=== PATIENT | female | born 1965 | race Caucasian/White ===

== ENCOUNTER 2020-04-24 14:00 | Outpatient (RCR) | payer OTHER, SELFPAY ==
[2020-03-20 10:50] VITALS: BMI 37.4
[2020-03-20 10:51] VITALS: BMI 37.4
== END 2020-06-10 14:01 | disposition home or self-care (01) ==
LOC: ANHDMC 14:00
PROVIDERS: PCP Physician Assistant; Visit Provider Physician Assistant
DX: E11.65 Type 2 diabetes mellitus with hyperglycemia (principal); Z71.3 Dietary counseling and surveillance; Z71.89 Other specified counseling
CPT/HCPCS: 97802; G0108

== ENCOUNTER → 2020-06-27 10:24 | Outpatient (CLI) | payer OTHER, SELFPAY ==
--- NOTE | ~2020-06-27 | MMUS_ITS ---
EXAMINATION: MM diagnostic beni BI w traci, US breast RT limited HISTORY: Right palpable breast lump TECHNIQUE: Bilateral full field ML, MLO and CC and right spot MLO and CC 3-D tomosynthesis images wer e performed and synthetic 2-D images were generated. CAD analysis was submitted and interpreted. High resolution targeted right breast ultrasound was performed and at area of clinical complaint at 1:00 17 cm from nipple. COMPARISON: 06/01/2019, 12/09/2017, 10/08/2016 bilateral digital screening mammogram examinations FINDINGS: MAMMOGRAPHIC FINDINGS: There is a low density 9 mm asymmetric ill-defined opacity in the mid to upper right breast 6.4 cm de ep to the nipple on MLO view (MLO Tomosynthesis image /). Another low-density asymmetric ill-defined opacity of approximately 9 mm dimension is noted in the up per outer left breast (MLO Tomosynthesis image /). These 2 opacities are likely stable since 10/08/2016. Otherwise no suspicious mass, architectural distortion, malignant calcification, skin thickening or r etraction of either breast is evident. ULTRASOUND: Right breast 1:00 17 cm from nipple: Parallel circumscribed 4.5 x 8.3 mm hyperechoic lesion consisten t with probable small lipoma is noted at the area of clinical complaint. IMPRESSION: 1. No mammographic evidence of malignancy 2. Routine mammographic screening is recommended. BI-RADS Category 2: Benign finding(s). Reviewed, dictated and finalized at location B. CLEANER IMPRESSION: 1. No mammographic evidence of malignancy 2. Routine mammographic screening is recommended. BI-RADS Category 2: Benign finding(s).
== END ==
PROVIDERS: PCP Physician Assistant; Visit Provider Nurse Practitioner
DX: N63.10 Unspecified lump in the right breast, unspecified quadrant (principal)
CPT/HCPCS: 76642; 77062; 77066; G0279

== ENCOUNTER 2020-07-08 14:57 | Outpatient (RCR) | payer OTHER, SELFPAY ==
[2020-07-08 15:19] VITALS: BMI 36.8
== END 2020-09-22 09:54 | disposition home or self-care (01) ==
LOC: ANHDMC 14:57
PROVIDERS: PCP Physician Assistant; Visit Provider Physician Assistant
DX: E11.65 Type 2 diabetes mellitus with hyperglycemia (principal); Z71.3 Dietary counseling and surveillance
CPT/HCPCS: 97803

== ENCOUNTER 2020-12-19 01:18 | Day surgery (SDC) | payer OTHER, SELFPAY ==
[2020-12-04 11:27] VITALS: BMI 38.6
[2020-12-19 06:24] VITALS: BP 125/80; PULSE 87; RESP 16; TEMP 35.9; O2SAT 100
[2020-12-19] MEDS: LACTATED RINGERS 1,000 ML 150 ML IV CONT (06:37)
[2020-12-19 06:40] LABS: Glucose Point of Care 135 mg/dl (65-105)
--- NOTE | 2020-12-19 07:03 | PM.HPGS ---
History of Present Illness History of Present Illness Consent: Risks, benefits, and alternatives have been discussed and questions answered. Patient agrees to proceed with procedure. Chief complaint: GERD Narrative: Maria Fernanda Ramires is a 55 year old female Persistent chest pain, burning, unresponsive to PPIs. She also had a great deal of nausea vomiting in the past year, particularly when she was started on Trulicity for diabetes. She has lost a net 30 lb Review of Systems Review of Systems: All systems reviewed & are unremarkable except as noted in HPI and below PMFSH Past Medical History Medical History Diabetes Hypertension IBS (irritable bowel syndrome) Surgical History Surgical History History of cholecystectomy Family History Family History Father Diabetes mellitus Hypertension Heart disease Liver cancer Mother Depression Sibling Multiple myeloma Social History Social History Smoking status: Never smoker Alcohol intake: never Substance use: never Substance use type: does not use Living arrangements: with family Spiritual care concerns: No Meds Home Medications and Allergies Home Medications Medication Instructions Recorded Confirmed Type duloxetine 60 mg capsule,delayed 60 mg PO DAILY 11/18/20 12/19/20 History release linaclotide 72 mcg capsule 72 mcg PO DAILY PRN 11/18/20 12/19/20 History lisinopril 2.5 mg tablet 2.5 mg PO DAILY 11/18/20 12/19/20 History progesterone micronized 200 mg 200 mg PO QHS 11/18/20 12/19/20 History capsule rosuvastatin 10 mg tablet 10 mg PO DAILY 11/18/20 12/19/20 History triamterene 50 mg capsule 50 mg PO DAILY 11/18/20 12/19/20 History dulaglutide [Trulicity] 0.75 mg SUBCUT WEEKLY 12/04/20 12/19/20 History Allergies Allergy/AdvReac Type Severity Reaction Status Date / Time No Known Allergies Allergy Unverified 12/19/20 06:23 Vital Signs Vital Signs - 24 hr 12/19/20 06:24 Temperature 35.9 C L Pulse Rate 87 Respiratory Rate 16 Blood Pressure 125/80 Pulse Oximetry 100 Exam Const: General: alert Orientation/consciousness: patient oriented x3 Resp: Auscultation: clear to auscultation bilaterally Cardio: Rhythm: regular rhythm GI: GI Palp: Yes Soft to palpation and No Tenderness to palpation present (GI) Neuro: General: patient oriented x3 Assessment and Plan Assessment and plan (1) GERD (gastroesophageal reflux disease): Code(s): K21.9 - Gastro-esophageal reflux disease without esophagitis Status: Acute
--- NOTE | 2020-12-19 07:08 | WPDANESEPPF ---
Anes - Initial Pre Proc Eval Procedure: Operation Date: 12/19/20 07:30 Proposed Procedures p Esophagogastroduodenoscopy - Toño Shirley MD Date/Time: 12/19/20 07:08 Surgeon: Toño Shirley MD Pre Op Diagnosis: GERD Patient Data Age: 55 Gender: F Height: 1.6 m Weight: 100.3 kg Last Vital Signs Temp 96.7 F L 12/19/20 06:24 Pulse 87 12/19/20 06:24 Resp 16 12/19/20 06:24 BP 125/80 12/19/20 06:24 Pulse Ox 100 12/19/20 06:24 Allergies Allergy/AdvReac Type Severity Reaction Status Date / Time No Known Allergies Allergy Unverified 12/19/20 06:23 Home Medications Medication Instructions Recorded Confirmed Type duloxetine 60 mg capsule,delayed 60 mg PO DAILY 11/18/20 12/19/20 History release linaclotide 72 mcg capsule 72 mcg PO DAILY PRN 11/18/20 12/19/20 History lisinopril 2.5 mg tablet 2.5 mg PO DAILY 11/18/20 12/19/20 History progesterone micronized 200 mg 200 mg PO QHS 11/18/20 12/19/20 History capsule rosuvastatin 10 mg tablet 10 mg PO DAILY 11/18/20 12/19/20 History triamterene 50 mg capsule 50 mg PO DAILY 11/18/20 12/19/20 History dulaglutide [Trulicity] 0.75 mg SUBCUT WEEKLY 12/04/20 12/19/20 History Laboratory Tests 12/19/20 06:36 POC Capillary Glucose 135 mg/dl H mg/dl (65-105) Patient hx anesthesia problems: none Family hx anesthesia problems: none PMFSH Past Medical History Medical History Diabetes Hypertension IBS (irritable bowel syndrome) Surgical History Surgical History History of cholecystectomy Family History Family History Father Diabetes mellitus Hypertension Heart disease Liver cancer Mother Depression Sibling Multiple myeloma Social History Social History Smoking status: Never smoker Alcohol intake: never Substance use: never Substance use type: does not use Living arrangements: with family Spiritual care concerns: No Anes - Eval Final PreProcedure Day of Procedure 12/19/20 07:08 Patient weight: morbidly obese Heart: regular rate and rhythm Lungs: clear to auscultation Airway: Mallampati scale class II Neurological: alert and oriented Last oral intake: >/= 8 hours ASA classification: III Emergent: no Anesthetic plan: proceed Anesthesia type and monitoring: general GIVS and standard monitoring Informed Consent: The patient's anesthetic plan and its attendant risks and benefits were discussed with the patient/family/POA. Questions were solicited and answers provided to the satisfaction of the patient/family/POA.
[2020-12-19 07:37] VITALS: BP 100/67; PULSE 82; RESP 22; O2SAT 100
[2020-12-19 07:47] VITALS: BP 94/57; PULSE 79; RESP 14; O2SAT 100
[2020-12-19 07:57] VITALS: BP 106/68; PULSE 76; RESP 20; O2SAT 97
== END 2020-12-19 08:10 | disposition home or self-care (01) ==
PROVIDERS: PCP Physician Assistant; Visit Provider Internal Medicine Gastroenterology
PROC: 0DJ08ZZ Inspection of Upper Intestinal Tract, Via Natural or Artificial Opening Endoscopic (ICD-10-PCS; CPT 43235; principal; 2020-12-19 07:30)
DX: K21.9 Gastro-esophageal reflux disease without esophagitis (principal); K31.7 Polyp of stomach and duodenum; E11.9 Type 2 diabetes mellitus without complications; R07.89 Other chest pain; K58.9 Irritable bowel syndrome, unspecified; E66.01 Morbid (severe) obesity due to excess calories; Z68.43 Body mass index [BMI] 50.0-59.9, adult; R11.0 Nausea; I10 Essential (primary) hypertension
CPT/HCPCS: 43239; 43251; 82948; 87081; 88305; J2704; J7120

== ENCOUNTER → 2022-04-02 12:47 | Outpatient (CLI) | payer OTHER, SELFPAY ==
--- NOTE | ~2022-04-02 | US_ITS ---
US renal BI 04/02/2022 13:20 Procedure: Realtime transabdominal ultrasound of the kidneys and bladder. Indication: Recurrent UTI Comparison: No prior studies for comparison. Findings: Renal echotexture is normal bilaterally without hydronephrosis, contour deforming mass or r enal calculus. The right kidney measures 7.8 cm and left kidney measures 7.8 cm. Bladder within norm al limits. Impression: 1: Unremarkable renal ultrasound. No stones, masses or hydronephrosis. Reviewed, dictated and finalized at location A. Impression: 1: Unremarkable renal ultrasound. No stones, masses or hydronephrosis.
== END ==
PROVIDERS: PCP Physician Assistant
DX: N39.0 Urinary tract infection, site not specified (principal)
CPT/HCPCS: 76775

== ENCOUNTER → 2022-04-02 12:49 | Outpatient (CLI) | payer OTHER, SELFPAY ==
--- NOTE | ~2022-04-02 | US_ITS ---
EXAMINATION: US pelvic complete DATE: 04/02/2022 13:20 INDICATION: Postmenopausal bleeding Comparison:06/23/2018 TECHNIQUE: Multiple transabdominal and endovaginal sonographic images of the pelvis performed. FINDINGS: The uterus measures 8.8 x 3.8 x 4.8 cm. There is a small uterine fibroid anteriorly measuri ng 1.5 x 1.2 x 1 cm. The endometrial complex measures 4 mm. The right ovary measures 2.5 x 1.4 x 1.8 cm. The left ovary is not visualized. There is no free fluid in the pelvis. There are no abnormal masses seen on either side. IMPRESSION: 1. Small uterine fibroid measuring 1.5 cm. 2: Borderline endometrial thickness measuring 4 mm. Reviewed, dictated and finalized at location A.
== END ==
PROVIDERS: PCP Physician Assistant; Visit Provider Nurse Practitioner
DX: N95.0 Postmenopausal bleeding (principal); D25.9 Leiomyoma of uterus, unspecified
CPT/HCPCS: 76856

== ENCOUNTER 2022-07-30 09:46 | Outpatient (CLI) | payer OTHER, SELFPAY ==
[2022-07-30 10:33] LABS: Anion Gap 3 mmol/L (8-16); Blood Urea Nitrogen 30 mg/dL (7-17); Calcium 9.2 mg/dL (8.4-10.2); Carbon Dioxide 33 mmol/L (22-30); Chloride 98 mmol/L (98-107); Estimated Glomerular Filt Rate > 60; Glucose 106 mg/dL (65-110); Potassium 4.1 mmol/L (3.4-5.0); Sodium 134 mmol/L (137-145)
== END 2022-07-30 09:47 | disposition home or self-care (01) ==
LOC: ANHSURGERY 09:50
PROVIDERS: Anesthesiology; PCP Physician Assistant; Visit Provider Obstetrics & Gynecology Gynecology
DX: E11.9 Type 2 diabetes mellitus without complications (principal); Z01.818 Encounter for other preprocedural examination
CPT/HCPCS: 36415; 80048

== ENCOUNTER 2022-08-09 01:10 | Day surgery (SDC) | payer OTHER, SELFPAY ==
[2022-07-27 10:42] VITALS: BMI 37.2
--- NOTE | 2022-07-27 10:45 | PC.NURSE ---
Report to the Outpatient Waiting Room, entrance under the green pavilion located off [facility], at time 8:30 on date 08/09/22. Planned Procedure Time: 10:30. Time changes happen often and if your time is changed the preop area will call you the afternoon before. - You and your visitor will be asked to self-screen and do not enter if you have any COVID symptoms. - Only one visitor is requested with a max of two and NO children visitors are allowed at this time. - The patient visitor may be requested to leave or wait in car when not with patient due to distancing restrictions. - A mask is optional within the hospital at this time. Patients may have clear liquids (water, carbonated beverages, clear teas, apple juice) until 3 hours prior to surgery with a maximum of 20 ounces. - No food from midnight until time of surgery Take the following medications with a SIP of water the morning of surgery: NONE DO NOT STOP ANY OF YOUR OTHER PRESCRIPTION MEDICATIONS PRIOR TO SURGERY EXCEPT THE FOLLOWING Medications to discontinue per physician: N/A Date to take last dose: N/A Please no make-up, nail english, hairspray, perfume, deodorant, or body powder the day of surgery. No jewelry (including any body piercings) or valuables the day of surgery, leave them at home. Please take a shower or bath the night before, or the morning of, surgery with an antibacterial soap. Wear comfortable, loose fitting clothing. - Jewelry must be removed prior to entering the operating room. Rings and piercings that are not removed may be cut off. - The hospital will not accept responsibility for valuables. - Please leave all valuables, including medications, at home the day of surgery. If you are going home after surgery, a licensed delivery driver must drive you home. - NO public transportation without another adult if you receive anesthesia. - We recommend that an adult stay with you for 24 hours following discharge. - We also recommend that you do not drive, make important decision, drink alcoholic beverages, or take any drugs that were not prescribed by your health care provider for at least 24 hours after your discharge time. Follow any additional instructions given to you from your surgeon. If you or anyone in your household have experienced Covid symptoms in the past week, please notify your surgeon or the nurse liaison at the phone number below for possible testing. Telephone instructions given to PT - ARNOLDO LOPEZ and asked if any additional questions and then verbalized understanding. Patient advised to call surgeon office or pre surgery nurse liaison [phone] if any additional questions.
--- NOTE | 2022-08-09 07:30 | WPDHPUPDATE1 ---
History and Physical Update Update Date/Time: 08/09/22 07:30 History and Physical has been reviewed, including an updated exam of the patient. There are NO changes in the patient's condition. Risks, benefits, and alternatives have been discussed and questions answered. Patient agrees to proceed with procedure.
--- NOTE | 2022-08-09 07:30 | PM.HPGS ---
History of Present Illness History of Present Illness Consent: Risks, benefits, and alternatives have been discussed and questions answered. Patient agrees to proceed with procedure. Chief complaint: Post Menopausal Bleeding Narrative: Maria Fernanda Ramires is a 57 year old female with 2 episodes of postmenopausal bleeding. Pelvic ultrasound showed endometrium to be thickened. Was recommended to proceed with D&C hysteroscopy. Risks of infection, bleeding, perforation, and possibility of not entering the uterine cavity were reviewed. Patient has a history of a prior endometrial ablation. Patient has been given Cytotec to take for 1 week prior to the procedure. Patient voices understanding and agrees to proceed. Review of Systems Review of Systems: not repeated day of surgery; patient states no changes in status [facility] Past Medical History Medical History (Updated 08/09/22 @ 07:35 by Sariah Aden MD) Diabetes Hypertension IBS (irritable bowel syndrome) Surgical History Surgical History (Updated 08/09/22 @ 07:34 by Sariah Aden MD) History of x2 History of cholecystectomy History of endometrial ablation 2019 History of hysteroscopy x2 2015, 2018 Family History Family History Father Diabetes mellitus Hypertension Heart disease Liver cancer Mother Depression Sibling Multiple myeloma Social History Social History Smoking status: Never smoker Alcohol intake: never Substance use: never Substance use type: does not use Living arrangements: with family Spiritual care concerns: No Meds Home Medications and Allergies Home Medications Medication Instructions Recorded Confirmed Type duloxetine 60 mg capsule,delayed 60 mg PO HS 11/18/20 07/27/22 History release linaclotide 72 mcg capsule 72 mcg PO DAILY PRN Abdominal 11/18/20 07/27/22 History (Linzess) Discomfort lisinopril 2.5 mg tablet 2.5 mg PO DAILY 11/18/20 07/27/22 History rosuvastatin 10 mg tablet 10 mg PO DAILY 11/18/20 07/27/22 History dulaglutide 0.75 mg/0.5 mL 0.75 mg subcut WEEKLY 12/04/20 07/27/22 History subcutaneous pen injector (Trulicity) triamterene 75 1 tablet PO DAILY 07/27/22 07/27/22 History mg-hydrochlorothiazide 50 mg tablet Allergies Allergy/AdvReac Type Severity Reaction Status Date / Time No Known Allergies Allergy Unverified 07/27/22 10:39 Exam Const: General: healthy appearing and alert Orientation/consciousness: patient oriented x3 Resp: Effort & Inspection: normal respiratory effort GI: GI Palp: Yes Soft to palpation, No Tenderness to palpation present (GI) and No Palpable mass present : External Female Exam: normal external appearance Speculum Exam - Vagina: normal appearance of the vagina and normal vaginal discharge Speculum Exam - Cervix: normal appearance of the cervix Bimanual exam- vagina & uterus: uterine size normal and consistency normal Bimanual Exam- Adnexa, other: normal adnexae and No adnexal tenderness Neuro: General: patient oriented x3 Assessment and Plan Assessment and plan (1) Post-menopausal bleeding: Code(s): N95.0 - Postmenopausal bleeding Status: Acute Assessment and Plan: plan to proceed with D&C hysteroscopy
[2022-08-09 08:44] VITALS: BMI 37.8
--- NOTE | 2022-08-09 08:52 | WPDANESEPPF ---
Anes - Initial Pre Proc Eval Procedure: Operation Date: 08/09/22 10:30 Proposed Procedures p Hysteroscopy with Dilation and Curettage - Sariah Aden MD Date/Time: 08/09/22 08:52 Surgeon: Sariah Aden MD Pre Op Diagnosis: Post Menopausal Bleeding Patient Data Age: 57 Gender: F Height: 1.6 m Weight: 96.9 kg Allergies Allergy/AdvReac Type Severity Reaction Status Date / Time No Known Allergies Allergy Verified 08/09/22 08:43 Home Medications Medication Instructions Recorded Confirmed Type duloxetine 60 mg capsule,delayed 60 mg PO HS 11/18/20 07/27/22 History release linaclotide 72 mcg capsule 72 mcg PO DAILY PRN Abdominal 11/18/20 07/27/22 History (Linzess) Discomfort lisinopril 2.5 mg tablet 2.5 mg PO DAILY 11/18/20 07/27/22 History rosuvastatin 10 mg tablet 10 mg PO DAILY 11/18/20 07/27/22 History dulaglutide 0.75 mg/0.5 mL 0.75 mg subcut WEEKLY 12/04/20 07/27/22 History subcutaneous pen injector (Trulicity) triamterene 75 1 tablet PO DAILY 07/27/22 07/27/22 History mg-hydrochlorothiazide 50 mg tablet Patient hx anesthesia problems: none Family hx anesthesia problems: none Results Review: All pre-operative results and documents have been reviewed as part of the pre-operative evaluation. [facility] Past Medical History Medical History Diabetes Hypertension IBS (irritable bowel syndrome) Surgical History Surgical History History of x2 History of cholecystectomy History of endometrial ablation 2019 History of hysteroscopy x2 2015, 2019 Family History Family History Father Diabetes mellitus Hypertension Heart disease Liver cancer Mother Depression Sibling Multiple myeloma Social History Social History Smoking status: Never smoker Alcohol intake: never Substance use: never Substance use type: does not use Living arrangements: with family Spiritual care concerns: No Anes - Eval Final PreProcedure Day of Procedure 08/09/22 08:52 Patient weight: obese Heart: regular rate and rhythm Lungs: clear to auscultation Airway: Mallampati scale class II Neurological: alert and oriented Last oral intake: >/= 8 hours ASA classification: III Emergent: no Anesthetic plan: proceed Anesthesia type and monitoring: general GIVS and standard monitoring Results Review: All pre-operative results and documents have been reviewed as part of the pre-operative evaluation. Informed Consent: The patient's anesthetic plan and its attendant risks and benefits were discussed with the patient/family/POA. Questions were solicited and answers provided to the satisfaction of the patient/family/POA.
[2022-08-09] MEDS: LACTATED RINGERS 1,000 ML 30 ML IV CONT ×2 (08:55→10:48)
[2022-08-09 09:00] LABS: Glucose Point of Care 116 mg/dl (65-105)
[2022-08-09 09:05] VITALS: BP 118/72; PULSE 88; RESP 16; TEMP 36.4; O2SAT 99
[2022-08-09] MEDS: ONDANSETRON INJ 4 MG/2 ML VIAL IV PUSH ×2 (09:12)
[2022-08-09] MEDS: ACETAMINOPHEN 500 MG TABLET 1000 MG PO (09:36)
[2022-08-09] MEDS: LIDOCAINE 1% BUFFERED WITH 8.4% SODIUM BICARB 1 ML SYRINGE 10 ML INFILTRATE (10:13)
[2022-08-09] MEDS: KETOROLAC 30 MG/ML VIAL (*BKC) IV PUSH (10:20)
--- NOTE | 2022-08-09 10:26 | W.PM.PROC2 ---
Procedure Note - Detailed Date of Procedure 08/09/22 Pre-op Diagnosis Post Menopausal Bleeding Post-op Diagnosis Same Procedure Performed D&C hysteroscopy Surgeon Sariah Aden MD Anesthesia MAC and Local Findings cervix is stenotic; uterus sounds to 8cm and appears scarred consistent with prior ablation Description of Procedure The patient is taken to operating room and placed under anesthesia in the dorsal lithotomy position. She was prepped and draped in usual sterile fashion. [place] speculum was placed in the vagina and the cervix grasped on the anterior lip with a tenaculum. Cervix is injected in each quadrant with 1% lidocaine the uterus is attempted to be sounded and there is internal stenosis. The os Finders are used in the stenosis is able to be broken up. The cervix was dilated to a 5 [place]. The uterus is then sounded to 8cm. The diagnostic hysteroscope was placed with a scarred appearing endometrium. No lesions are noted. The hysteroscope was removed. Then sharp curette is used to curette the endometrium until a uterine cry was noted in all areas. Minimal material was obtained consistent with the appearance. All instruments are removed. Sponge, needle, and instrument counts are correct per the OR staff. Patient is awakened from anesthesia and taken to recovery in stable condition. Estimated Blood Loss 5 Drains No Packing No Pathology Yes ( Endometrial curettings) Complications No immediate complications Condition Stable Disposition PACU
[2022-08-09 10:29] VITALS: BP 81/44; PULSE 83; RESP 16; O2SAT 93
[2022-08-09 10:37] LABS: Glucose Point of Care 92 mg/dl (65-105)
[2022-08-09 10:55] VITALS: BP 90/41; PULSE 75; RESP 16; O2SAT 100
[2022-08-09] MEDS: fentaNYL CITRATE INJ (*CRX) 100 MCG/2 ML VIAL 25 MCG IV PUSH ×2 (11:05→11:30)
[2022-08-09 11:25] VITALS: BP 98/47; PULSE 78; RESP 16; O2SAT 100
[2022-08-09 11:55] VITALS: BP 118/66; PULSE 81; RESP 16
[2022-08-09 12:24] VITALS: BP 113/72; PULSE 84; RESP 16
== END 2022-08-09 12:25 | disposition home or self-care (01) ==
PROVIDERS: PCP Physician Assistant; Visit Provider Obstetrics & Gynecology Gynecology
PROC: 0U5B8ZZ Destruction of Endometrium, Via Natural or Artificial Opening Endoscopic (ICD-10-PCS; CPT 58563; principal; 2022-08-09 10:30)
DX: N95.0 Postmenopausal bleeding (principal); E11.9 Type 2 diabetes mellitus without complications; I10 Essential (primary) hypertension
CPT/HCPCS: 58558; 36415; 80048; 82948; 88305; A9270; J1100; J1885; J2250; J2405; J2704; J3010; J7120

== ENCOUNTER → 2022-09-03 13:16 | Outpatient (CLI) | payer OTHER, SELFPAY ==
--- NOTE | ~2022-09-03 | MM_ITS ---
EXAMINATION: MM screening beni BI w traci HISTORY: Screening mammogram TECHNIQUE: Craniocaudal and mediolateral oblique 3-D tomosynthesis images were obtained and synthetic 2-D images were generated. CAD analysis was submitted and interpreted. COMPARISON: 06/27/2020 diagnostic right mammogram and limited right breast ultrasound 06/01/2019, 12/09/2017 bilateral screening mammogram examinations BREAST PARENCHYMAL COMPOSITION: There are scattered areas of fibroglandular density. FINDINGS: There is no evidence of suspicious mass, calcification, or architectural distortion to sugg est malignancy in either breast. There has been no suspicious interval change. IMPRESSION: 1. No mammographic evidence of malignancy. 2. Recommend routine screening mammography in one year. BI-RADS Category 1: Negative Reviewed, dictated and finalized at location A.
--- NOTE | ~2022-09-03 | DEXA_ITS ---
Bone Density Report Name: ARNOLDO LOPEZ Age: 57 Sex: Female Ethnicity: White Date of : 1965 Indication: postmenopausal; screening for osteoporosis; Referring Provider: CUCO, MEKA Study: Bone densitometry was performed. Exam Date: September 03, 2022 Accession number: [id number] Bone Density: Region BMD T-score Z-score Classification AP Spine (L1-L4) 1.004 -0.4 0.8 Normal Femoral Neck (Left) 0.694 -1.4 -0.2 Osteopenia Total Hip (Left) 0.861 -0.7 0.1 Normal Femoral Neck (Right) 0.729 -1.1 0.1 Osteopenia Total Hip (Right) 0.924 -0.1 0.6 Normal Total Hip Mean 0.893 -0.4 0.4 Normal World Health Organization criteria for BMD impression classify patients as: Normal (T-score at or above -1.0), Osteopenia (T-score between -1.0 and -2.5), or Osteoporosis (T-score at or below -2.5). 10-year Fracture Risk(1): Major Osteoporotic Fracture 6.4% Hip Fracture 0.4% Reported Risk Factors: [place] (), Neck BMD=0.694, BMI=38.5 (1) FRAX(R) Version 3.08. Fracture probability calculated for an untreated patient. Fracture probability may be lower if the patient has received treatment. Previous Exams: Region Exam Age BMD T-score BMD Change BMD Change Date g/cm2 vs Baseline vs Previous AP Spine(L1-L4) 09/03/2022 57 1.004 -0.4 -0.055* -0.055* 10/08/2016 51 1.059 0.1 Total Hip(Left) 09/03/2022 57 0.861 -0.7 -0.042* -0.042* 10/08/2016 51 0.903 -0.3 Total Hip(Right) 09/03/2022 57 0.924 -0.1 -0.059* -0.059* 10/08/2016 51 0.983 0.3 *Denotes significance at 95% confidence level, LSC for AP Spine = 0.022 g/cm2, LSC for Total Hip = 0.027 g/cm2 Clinical Information Provided by Patient: Patient maximum height was 63.0 Menopause Age: 49 No regular weight bearing exercise Does not regularly consume dairy products Drinks caffeinated beverages Onset of menses at age 12 Number of children 2 Impression: The patient has low bone mass, based on the Left Femoral Neck T-score. The patient has an estimated ten-year risk of hip fracture of 0.4% and an estimated ten-year risk of major fracture of 6.4%, based on the WHO FRAX algorithm. The BMD for the AP Spine(L1-L4) decreased, changing by -0.055 since the last DXA exam. The BMD for the Total Hip(Left) decreased, changing by -0.042 since the last DXA exam. The BMD for the Total Hip(Right) decreased, changing by -0.059 since the last
== END ==
PROVIDERS: PCP Physician Assistant; Visit Provider Nurse Practitioner
DX: Z12.31 Encounter for screening mammogram for malignant neoplasm of breast (principal); Z78.0 Asymptomatic menopausal state
CPT/HCPCS: 77063; 77067; 77080

== ENCOUNTER 2023-11-25 09:57 | Outpatient (CLI) | payer OTHER, SELFPAY ==
--- NOTE | ~2023-11-25 | MM_ITS ---
EXAMINATION: MM screening [facility] BI w traci HISTORY: Screening TECHNIQUE: Craniocaudal and mediolateral oblique 3-D tomosynthesis images were obtained and synthetic 2-D images were generated. CAD analysis was submitted and interpreted. COMPARISON: Comparison to multiple prior studies sequentially, with oldest reviewed study dated 05/20. BREAST PARENCHYMAL COMPOSITION: There are scattered areas of fibroglandular density. FINDINGS: There is no evidence of suspicious mass, calcification, or architectural distortion to sugg est malignancy in either breast. There has been no suspicious interval change. IMPRESSION: 1. No mammographic evidence of malignancy. 2. Recommend routine screening mammography in one year. BI-RADS Category 1: Negative Reviewed, dictated and finalized at location B.
== END 2023-11-25 09:58 ==
LOC: MICIMG 09:58
PROVIDERS: PCP Physician Assistant; Visit Provider Nurse Practitioner
DX: Z12.31 Encounter for screening mammogram for malignant neoplasm of breast (principal)
CPT/HCPCS: 77063; 77067

== ENCOUNTER 2024-03-02 14:18 | Outpatient (CLI) | payer OTHER, SELFPAY ==
--- NOTE | ~2024-03-02 | US_ITS ---
US pelvic complete w TV Ordering provider: Ana Perry, MONICO History: . postmenopausal bleeding . Comparison: None. Technique: Transabdominal and endovaginal ultrasound of the pelvis (Doppler ultrasound interrogation techniques used as needed for this exam.) FINDINGS: CERVIX: Normal. UTERUS: Measures 7.4x 3.2x 4.2 cm in length which is within normal limits and is anteverted. Complex lesion is seen measuring 1.6 x 1.7 x 1.7 cm suggestive of a fibroid. ENDOMETRIUM: Normal in thickness measuring 5.1 mm. No endometrial masses, cysts or fluid. CUL DE SAC: No free fluid. RIGHT OVARY: Normal in size measuring 2.1x 1x 2.2 cm. Normal echotexture. Doppler vascular flow prese nt. LEFT OVARY: Not demonstrated. ADNEXA: Normal. No mass. IMPRESSION: Fibroid uterus.Otherwise, normal pelvic ultrasound. Reviewed, dictated and finalized at location A.
== END 2024-03-02 14:19 | disposition home or self-care (01) ==
LOC: GOSHIMG 14:18
PROVIDERS: PCP Obstetrics & Gynecology Gynecology; Visit Provider Physician Assistant
DX: N95.0 Postmenopausal bleeding (principal); D25.9 Leiomyoma of uterus, unspecified
CPT/HCPCS: 76830; 76856

== ENCOUNTER 2024-03-19 00:28 | Day surgery (SDC) | payer OTHER, SELFPAY ==
[2024-03-09 14:45] VITALS: BMI 38.5
--- NOTE | 2024-03-09 14:50 | PC.NURSE ---
Report to the Outpatient Waiting Room, entrance under the green pavilion located off [facility], at time _0630_ on date _[id number]_. Planned Procedure Time: _0830_.? Time changes happen often and if your time is changed the preop area will call you the afternoon before. - You and your visitor will be asked to self-screen and do not enter if you have any COVID symptoms. Please call surgeon if you need to reschedule. - A mask is optional within the hospital at this time. Patients may have clear liquids (water, carbonated beverages, clear teas, apple juice) until 3 hours prior to surgery with a maximum of 20 ounces. - No food from midnight until time of surgery and no smoking Take only the following medications with a SIP of water on the morning of surgery: ____None DO NOT STOP ANY OF YOUR OTHER PRESCRIPTION MEDICATIONS PRIOR TO SURGERY EXCEPT THE FOLLOWING Medications to discontinue per physician ____None Please no make-up, nail haitian, hairspray, perfume, deodorant, or body powder the day of surgery.? No jewelry (including any body piercings) or valuables the day of surgery, leave them at home.? Please take a shower or bath the night before, or the morning of, surgery with an antibacterial soap.? Wear comfortable, loose fitting clothing.? - Jewelry must be removed prior to entering the operating room.? Rings and piercings that are not removed may be cut off. - The hospital will not accept responsibility for valuables.? - Please leave all valuables, including medications, at home the day of surgery. If you are going home after surgery, a licensed roll off driver must drive you home.? - NO public transportation without another adult if you receive anesthesia. - We recommend that an adult stay with you for 24 hours following discharge. - We also recommend that you do not drive, make important decision, drink alcoholic beverages, or take any drugs that were not prescribed by your health care provider for at least 24 hours after your discharge time. Follow any additional instructions given to you from your surgeon. Telephone instructions given to __Maria Fernanda__and asked if any additional questions and then verbalized understanding. Patient advised to call surgeon office or pre surgery nurse liaison [phone] if any additional questions.
[2024-03-19 06:55] LABS: Glucose Point of Care 124 mg/dl (65-105)
[2024-03-19 07:00] VITALS: BP 135/80; PULSE 94; RESP 14; TEMP 36.3; O2SAT 97; BMI 38.5
[2024-03-19] MEDS: LACTATED RINGERS 1,000 ML 30 ML IV CONT ×2 (07:00→08:30)
[2024-03-19] MEDS: ACETAMINOPHEN 500 MG TABLET 1000 MG PO (07:11)
--- NOTE | 2024-03-19 07:11 | WPDHPUPDATE1 ---
History and Physical Update Update Date/Time: 03/19/24 07:11 History and Physical has been reviewed, including an updated exam of the patient. There are NO changes in the patient's condition. Risks, benefits, and alternatives have been discussed and questions answered. Patient agrees to proceed with procedure.
--- NOTE | 2024-03-19 07:11 | PM.HPGS ---
History of Present Illness History of Present Illness Consent: Risks, benefits, and alternatives have been discussed and questions answered. Patient agrees to proceed with procedure. Chief complaint: Post Menopausal Bleeding Narrative: Maria Fernanda Ramires is a 58 year old female with postmenopausal bleeding and a thickened endometrium. It was recommended to undergo D&C hysteroscopy for further evaluation. Risks infection, bleeding perforation, and possible pathology are discussed. Patient voices understanding and agrees to proceed. Review of Systems Review of Systems: not repeated day of surgery; patient states no changes in status [facility] Past Medical History Medical History (Updated 03/19/24 @ 07:14 by Sariah Aden MD) Depression with anxiety Diabetes Hypertension IBS (irritable bowel syndrome) Surgical History Surgical History (Updated 03/19/24 @ 07:14 by Sariah Aden MD) History of x2 tubal ligation with 2nd History of cholecystectomy History of endometrial ablation 2019 History of hysteroscopy x3 2015, 2018, 2022 Family History Family History Father Diabetes mellitus Hypertension Heart disease Liver cancer Mother Depression Sibling Multiple myeloma Social History Social History Smoking status: Never smoker Alcohol intake: never Substance use: never Substance use type: does not use Living arrangements: with family Spiritual care concerns: No Meds Home Medications and Allergies Home Medications Medication Instructions Recorded Confirmed Type duloxetine 60 mg capsule,delayed 60 mg PO HS 11/18/20 03/09/24 History release linaclotide 72 mcg capsule 72 mcg PO DAILY PRN Abdominal 11/18/20 03/09/24 History (Linzess) Discomfort lisinopril 2.5 mg tablet 2.5 mg PO DAILY 11/18/20 03/09/24 History rosuvastatin 10 mg tablet 10 mg PO DAILY 11/18/20 03/09/24 History dulaglutide 0.75 mg/0.5 mL 0.75 mg subcut WEEKLY 12/04/20 03/09/24 History subcutaneous pen injector (Trulicity) triamterene 75 1 tablet PO DAILY 07/27/22 03/09/24 History mg-hydrochlorothiazide 50 mg tablet Allergies Allergy/AdvReac Type Severity Reaction Status Date / Time No Known Allergies Allergy Verified 03/09/24 14:43 Exam Const: General: healthy appearing and alert Orientation/consciousness: patient oriented x3 Resp: Effort & Inspection: normal respiratory effort : External Female Exam: normal external appearance Speculum Exam - Vagina: normal appearance of the vagina and normal vaginal discharge Speculum Exam - Cervix: normal appearance of the cervix Bimanual exam- vagina & uterus: uterine size normal and consistency normal Bimanual Exam- Adnexa, other: normal adnexae and No adnexal tenderness Neuro: General: patient oriented x3 Assessment and Plan Assessment and plan (1) Post-menopausal bleeding: Code(s): N95.0 - Postmenopausal bleeding Status: Acute Assessment and Plan: plan to proceed with D&C hysteroscopy
--- NOTE | 2024-03-19 08:22 | WPDANESEPPF ---
Anes - Initial Pre Proc Eval Procedure: Operation Date: 03/19/24 08:30 Proposed Procedures p Hysteroscopy Dilation and Curettage - Sariah Aden MD Date/Time: 03/19/24 08:22 Surgeon: Sariah Aden MD Pre Op Diagnosis: Post Menopausal Bleeding Patient Data Age: 58 Gender: F Height: 1.57 m Weight: 95.38 kg Last Vital Signs Temp 97.4 F L 03/19/24 07:00 Pulse 94 03/19/24 07:00 Resp 14 03/19/24 07:00 BP 135/80 03/19/24 07:00 Pulse Ox 97 03/19/24 07:00 O2 Del Method Room Air 03/19/24 07:00 Allergies Allergy/AdvReac Type Severity Reaction Status Date / Time No Known Allergies Allergy Verified 03/19/24 07:23 Home Medications Medication Instructions Recorded Confirmed Type duloxetine 60 mg capsule,delayed 60 mg PO HS 11/18/20 03/09/24 History release linaclotide 72 mcg capsule 72 mcg PO DAILY PRN Abdominal 11/18/20 03/09/24 History (Linzess) Discomfort lisinopril 2.5 mg tablet 2.5 mg PO DAILY 11/18/20 03/09/24 History rosuvastatin 10 mg tablet 10 mg PO DAILY 11/18/20 03/09/24 History dulaglutide 0.75 mg/0.5 mL 0.75 mg subcut WEEKLY 12/04/20 03/09/24 History subcutaneous pen injector (Trulicity) triamterene 75 1 tablet PO DAILY 07/27/22 03/09/24 History mg-hydrochlorothiazide 50 mg tablet Laboratory Tests 03/19/24 06:52 POC Capillary Glucose 124 H mg/dl (65-105) Patient hx anesthesia problems: none Family hx anesthesia problems: none Results Review: All pre-operative results and documents have been reviewed as part of the pre-operative evaluation. [facility] Past Medical History Medical History (Updated 03/19/24 @ 07:14 by Sariah Aden MD) Depression with anxiety Diabetes Hypertension IBS (irritable bowel syndrome) Surgical History Surgical History (Updated 03/19/24 @ 07:14 by Sariah Aden MD) History of x2 tubal ligation with 2nd History of cholecystectomy History of endometrial ablation 2018 History of hysteroscopy x3 2016, 2019, 2022 Family History Family History Father Diabetes mellitus Hypertension Heart disease Liver cancer Mother Depression Sibling Multiple myeloma Social History Social History Smoking status: Never smoker Alcohol intake: never Substance use: never Substance use type: does not use Living arrangements: with family Spiritual care concerns: No Anes - Eval Final PreProcedure Day of Procedure 03/19/24 08:22 Patient weight: obese Heart: regular rate and rhythm Lungs: clear to auscultation Airway: Mallampati scale class II Neurological: alert and oriented Last oral intake: >/= 8 hours ASA classification: III Emergent: no Anesthetic plan: proceed Anesthesia type and monitoring: general GIVS and standard monitoring Results Review: All pre-operative results and documents have been reviewed as part of the pre-operative evaluation. Informed Consent: The patient's anesthetic plan and its attendant risks and benefits were discussed with the patient/family/POA. Questions were solicited and answers provided to the satisfaction of the patient/family/POA.
--- NOTE | 2024-03-19 09:06 | P.OP_ITS ---
Procedure Note - Detailed Date of Procedure 03/19/24 Pre-op Diagnosis Post Menopausal Bleeding Post-op Diagnosis Same Procedure Performed hysteroscopic myomectomy with D&C Surgeon Sariah Aden MD Anesthesia MAC Findings uterus sounds to 7cm posterior wall fibroid is very vascular atrophic appearing endometrium Description of Procedure The patient was taken to the operating room and placed under anesthesia in the dorsal lithotomy position. She was prepped and draped in the usual sterile fashion. [place] speculum was placed in the vagina and the cervix grasped on the anterior lip with a tenaculum. The uterus is sounded to 7cm. The hysteroscope was placed and with the above-stated findings decision was made to remove the fibroid due to its vascularity. The Flex Aveta resection device is placed and under direct visualization the fibroid was removed in its entirety. Fluid deficit is 60cc. The hysteroscope was then removed and the sharp OO curette used to curette the endometrium until a good uterine cry was noted in all areas. Minimal material was obtained with this process consistent with the visual appearance. Instruments were then removed. Sponge, needle, and instrument counts are correct per the OR staff. Patient was awakened from anesthesia and taken to recovery in stable condition. Estimated Blood Loss 5 Drains No Packing No Pathology Yes ( Endometrial shavings and curettings) Complications No immediate complications Condition Stable Disposition PACU
[2024-03-19] MEDS: KETOROLAC 15 MG/ML VIAL (*BKC) IV PUSH (09:07)
[2024-03-19 09:09] VITALS: BP 117/55; PULSE 83; RESP 14; O2SAT 100
[2024-03-19 09:27] LABS: Glucose Point of Care 100 mg/dl (65-105)
[2024-03-19 09:35] VITALS: BP 118/48; PULSE 84; RESP 16; O2SAT 100
[2024-03-19] MEDS: ONDANSETRON INJ 4 MG/2 ML VIAL IV PUSH (09:35)
[2024-03-19 10:05] VITALS: BP 110/52; PULSE 70
[2024-03-19] MEDS: oxyCODONE HCL (*CRX) 5 MG TAB IR PO (10:05)
[2024-03-19 10:25] VITALS: BP 116/56; PULSE 76; RESP 18
== END 2024-03-19 10:33 | disposition home or self-care (01) ==
PROVIDERS: PCP Physician Assistant; Visit Provider Obstetrics & Gynecology Gynecology
PROC: 0U5B8ZZ Destruction of Endometrium, Via Natural or Artificial Opening Endoscopic (ICD-10-PCS; CPT 58563; principal; 2024-03-19 08:30)
DX: N95.0 Postmenopausal bleeding (principal); D25.9 Leiomyoma of uterus, unspecified; K58.9 Irritable bowel syndrome, unspecified; I10 Essential (primary) hypertension; E11.9 Type 2 diabetes mellitus without complications; F41.8 Other specified anxiety disorders; Z79.85 Long-term (current) use of injectable non-insulin antidiabetic drugs; E66.9 Obesity, unspecified; Z68.38 Body mass index [BMI] 38.0-38.9, adult
CPT/HCPCS: 58561; 82948; 88305; A9270; J1100; J1170; J1885; J2250; J2405; J2704; J3010; J7120

== ENCOUNTER 2024-12-14 13:48 | Outpatient (CLI) | payer OTHER, SELFPAY ==
--- NOTE | ~2024-12-14 | MM_ITS ---
EXAMINATION: MM screening [facility] BI w traci HISTORY: Screening mammogram TECHNIQUE: Craniocaudal and mediolateral oblique 3-D tomosynthesis images were obtained and synthetic 2-D images were generated. CAD analysis was submitted and interpreted. COMPARISON: 11/25/2023, 09/03/2022, 06/27/2020 BREAST PARENCHYMAL COMPOSITION:Not Dense. There are scattered areas of fibroglandular density. FINDINGS: No suspicious mass, calcification, or architectural distortion are identified in either shannan ast to suggest malignancy. There has been no suspicious interval change. IMPRESSION: No mammographic evidence of malignancy. Recommend routine screening mammography in one year. BI-RADS Category 1: Negative Reviewed, dictated and finalized at location .
== END 2024-12-14 13:49 | disposition home or self-care (01) ==
LOC: MICIMG 13:49
PROVIDERS: PCP Physician Assistant; Visit Provider Nurse Practitioner
DX: Z12.31 Encounter for screening mammogram for malignant neoplasm of breast (principal)
CPT/HCPCS: 77063; 77067

== ENCOUNTER 2025-01-18 11:47 | Emergency (ER) | payer OTHER, SELFPAY ==
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
[2025-01-18 11:50] VITALS: BP 125/76; PULSE 95; RESP 16; TEMP 36.5; O2SAT 100
--- OUTSIDE RECORDS SUMMARY | 2025-01-18 12:38 | XMS_ITS | Encounter Summary ---
Author Organization [facility] Address [address] [place] [address] Phone Care Team Providers Care Crop Ranch Hand Name Role Phone Ana Perry Primary Care Provider [phone]- [phone] Encounter Details Date Type Department Care Team (Latest Contact Info) Description 11/26/2024 Results Follow-Up [facility] [address] [place] [id number] Teresa Amato PA [address] [place] [address] Comprehensive metabolic panel, CBC with auto differential, Erythrocyte sedimentation rate, Additional followed-up results: 2 Social History Tobacco Use Types Packs/Day Years Used Date Smoking Tobacco: Never Smokeless Tobacco: Never Alcohol Use Standard Drinks/Week Comments Never 0 (1 standard drink = 0.6 oz pur e alcohol) AUDIT-C Answer Date Recorded Q1: How often do you have a drink containing alcohol? Never 09/28/2024 Q2: How many drinks containi ng alcohol do you have on a typical day when you are drinking? Patient does not drink Q3: How often do you have si x or more drinks on one occasion? 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
--- OUTSIDE RECORDS SUMMARY | 2025-01-18 12:38 | XMS_ITS | Encounter Summary ---
Author Organization [facility] Address [address] [place] [address] Care Team Providers Care Lining Closer Name Role Phone Ana Perry Primary Care Provider [phone]- [phone] Reason for Visit * Reason Onset Date Comments Test Results 12/17/2024 Encounter Details Date Type Department Care Team (Late st Contact Info) Description 12/17/2024 Results Follow-Up [facility] Family Medicine [address] [place] [address] Ana Perry PA 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 Advised per chart notes. Patient stated understanding and had no questions. Does message need to be routed? Yes-FYI Only * Result Encounter Note - Ana Perry PA - 12/18/2024 8:25 AM CDT Let pt know her mammogram is normal and will plan to repeat in 1 year. * Result Encounter Note - Ana Perry PA - 12/17/2024 12:25 PM CDT Let pt know her mammogram is normal and will plan to repeat in 1 year. documented in this encounter Plan of Treatment Not on file documented as of this encounter Visit Diagnoses Not on filedocumented in this encounter Care Teams Lining Closer Relationship Specialty Start Date End Date Ana Perry PA [address] [address] [place] [address] PCP - General Internal Medicine 10/11/18 documented as of this encounter
--- OUTSIDE RECORDS SUMMARY | 2025-01-18 12:38 | XMS_ITS | Clinical Summary ---
Author Organization [facility] Address [address] [place] [address] Care Team Providers Care Skip Hoist Engineer Name Role Phone Ana Perry PA-C Primary Care Provider [phone] Source Comments [facility],non-owned Affiliates and Associated Physician Practices is amultiple site organization consisting of ambulatory clinics and hospital sitesin [place], [place], [place] and [place]. This disclosure is being madepursuant to the Care Everywhere program and may not contain all information available regarding this patient. Last updated 18.[facility] Allergies No known active allergies Medications * Be aware that medications may not be up to date on this document. Alwaysverify current medications with the patient. linaCLOtide (LINZESS) 72 MCG capsule Take by mouth. 03/04/2017 Active DULoxetine (CYMBALTA) 60 MG capsule Take 60 mg by mouth DAILY. 03/04/2017 Active hydroCHLOROthiaz canelo (MICROZIDE) 12.5 MG capsule Take by mouth. 03/04/2017 Active sulfamethoxazole -trimethoprim (BACTRIM DS) 800-160 MG tablet Take 1 tablet by mouth 2 times daily 14 tablet 02/16/2018 Active Active Problems Problem Noted Date Diagnosed Date Pelvic and perineal pain 03/04/2017 Other chronic pain 03/04/2017 Myalgia 03/04/2017 Nocturia 03/04/2017 Urge incontinence 03/04/2017 Frequency of micturition 03/04/2017 Family History Medical History Relation Name Comments Depression Brother Diabetes - Type 2 Father Hypertension Father Depression Mother Cancer - Colon Neg Hx Cancer - Ovarian Neg Hx Relation Name Status Comments Brother Father Mother Social History Tobacco Use Types Packs/Day Years Used Date Smoking Tobacco: Never Smokeless Tobacco: Never Alcohol Use Standard Drinks/Week Comments No 0 (1 standard drink = 0.6 oz pur e alcohol) Comments Unknown Sex and Gender Information Value Date Recorded Sex Assigned at Not on file Legal Sex Female 5:13 PM LEGAL INSTRUMENTS EXAMINER Gender Identity Not on file Sexual Orientation Not on file Last Filed Vital Signs Vital Sign Reading Time Taken Comments Blood Pressure 122/72 06/03/2017 2:53 PM LEGAL INSTRUMENTS EXAMINER Pulse - - Temperature - - Respiratory Rate - - Oxygen Saturation - - Inhaled Oxygen Concentration - - Weight 99.6 kg (219 lb 9.6 oz) 06/03/2017 2:53 P M LEGAL INSTRUMENTS EXAMINER Height 160 cm (5' 3) 06/03/2017 2:53 PM LEGAL INSTRUMENTS EXAMINER Body Mass Index 38.9 06/03/2017 2:53 PM LEGAL INSTRUMENTS EXAMINER Plan of Treatment Health Maintenance Due Date Last Done Comments COLOGUARD (AGES 45-75) - COL ON CA SCREENING 1965 COLON MONITORING 1965 COLONOSCOPY - COLON CA SCREENING 1965 CT COLONOGRAPHY - COLON CA SCREENING 1965 Colorectal Cancer Screening 1965 FIT - COLON CA SCREENING 1965 FLEX SIG - COLON CA SCREENING 1965 LIPID TESTING 1965 MAMMOGRAM 1965 HIV SCREENING 1980 HEPATITIS C SCREENING 06/15/1983 DTAP/TDAP/TD VACCINES (1 - Tdap) 1984 HEPATITIS B VACCINE (1 of 3 - 19+ 3-dose series) 1984 PAP SMEAR 1986 PNEUMOCOCCAL VACCINE 50+ (1 of 1 - PCV) 2015 ZOSTER VACCINE (1 of 2) 2015 COVID-19 VACCINE ( - 2023-2 5 season) 2024 DEPRESSION SCREENING 06/20/2024 INFLUENZA VACCINE (#1) 2025 HIB VACCINE Aged Out No longer eligi ble based on patient's age to complete this topic HPV VACCINE Aged Out No longer eligi ble based on patient's age to complete this topic MENINGOCOCCAL (Group B) VACC INE SHARED DECISION-MAKING Aged Out No longer eligibl e based on patient's age to complete this topic MENINGOCOCCAL GROUPS A/C/Y/W VACCINE Aged Out No longer eligible b ased on patient's age to complete this topic Insurance [facility] SELF PAY NO INSURANCE Member Subscriber Plan / Payer (Ef fective for All Dates) Name:Arnoldo Lopez Member ID:Not on file Relation to Subscriber:Not on file Name:ARNOLDO LOPEZ Subscriber ID:Not on file (Home) Address: [address] [place] [address] Payer ID:Not on file Group ID:Not on file Type:Self Pay Address: [facility] Care Teams Skip Hoist Engineer Relationship Specialty Start Date End Date Ana Perry PA-C PCP - General 03/01/17
--- OUTSIDE RECORDS SUMMARY | 2025-01-18 12:38 | XMS_ITS | Encounter Summary ---
Author Organization [facility] Care Team Providers Care Digital Photo Printer Name Role Phone Ana Perry Primary Care Provider [phone]- [phone] Encounter Details Date Type Department Care Team (Latest Contact Info) Description 07/01/2016 Orders Only [facility] CLINCONV Provider, MD Deny [address] [place] [id number] Social History Tobacco Use Types Packs/Day Years Used Date Smoking Tobacco: Never Assessed Comments Unknown Sex and Gender Information Value Date Recorded Sex Assigned at Not on file Legal Sex Female 6:47 PM CERTIFIED NOVELL ENGINEER Gender Identity Not on file Sexual Orientation Not on file documented as of this encounter Plan of Treatment Not on file documented as of this encounter Procedures Procedure Name Priority Date/Time Associated Diagnosis Comments COLONOSCOPY - SCAN 07/01/2016 12 :00 AM CERTIFIED NOVELL ENGINEER documented in this encounter Results * COLONOSCOPY - SCAN (07/01/2016 12:00 AM CERTIFIED NOVELL ENGINEER) Narrative 07/01/2016 12:00 AM CERTIFIED NOVELL ENGINEER Ordered by an unspecified provider. us Historical Provider Final Res ult documented in this encounter Visit Diagnoses Not on filedocumented in this encounter Care Teams Digital Photo Printer Relationship Specialty Start Date End Date Ana Perry PA [address] [place] [address] PCP - General Internal Medicine 10/11/18 documented as of this encounter
--- OUTSIDE RECORDS SUMMARY | 2025-01-18 12:38 | XMS_ITS | Referral Summary ---
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 Name Role Phone Ana Perry Primary Care Provider [phone] Encounters Date Type Department Care Team Description 01/04/2025 9:30 AM CDT Office Visit [facility] [address] [place] [address] [place] [phone] Ana Perry PA Moderate episode of recurrent major depressive disorder (HCC) (Primary Dx); Type 2 diabetes mellitus without complication, without long-term current use of insulin (HCC); Type 2 diabetes mellitus with hyperlipidemia (HCC); Fibromyalgia; Vitamin D deficiency; Positive LORRAINE (antinuclear antibody); Low serum vitamin B12; Hypertension associated with diabetes (HCC); Morbid obesity (HCC); BMI 38.0-38.9,adult 12/17/2024 Results Follow-Up [address] [phone] Ana Perry PA Screening Mammogram Bilateral [place] 11/26/2024 Results Follow-Up [address] [phone] Teresa Amato PA Comprehensive metabolic panel, CBC with auto differential, Erythrocyte sedimentation rate, Additional followed-up results: 2 11/23/2024 10:15 AM CDT Office Visit [facility] [address] [place] [phone] Teresa Amato PA Positive LORRAINE (antinuclear antibody) (Primary Dx) from Last 3 Months Allergies No known active allergies Medications omeprazole (PriLOSEC) 40 mg capsule TAKE 1 CAPSULE BY MOUTH TWICE A DAY 180 capsule 1 023 Active Estring 2 mg (7.5 mcg /24 hour) vaginal ring INSERT 1 RING VAGINALLY EVERY 3 MONTHS 024 Active lisinopriL (PRINIVIL,ZESTRIL ) 2.5 mg tablet TAKE 1 TABLET BY MOUTH EVERY DAY 90 tablet [address] (CYMBALTA) 60 mg capsule Take 1 capsule (60 mg total) by mouth 2 (two) times a day 180 capsule 2 025 Active clotrimazole-beta methasone (LOTRISONE) cream Apply topically 2 (two) times a day 45 g 025 Active Additional Information Patient not taking.Reported on 01/04/2025 cyanocobalamin, vitamin B-12, (VITAMIN B-12 ORAL) Take by mouth Active cholecalciferol (Vitamin D3) 2000 unit tablet Active multivit-minerals /folic acid (MULTIVITAMIN GUMMIES ORAL) Take by mouth Flinstone Active triamterene-hydro CHLOROthiazide (MAXZIDE,DYAZIDE) 75-50 mg per tablet TAKE 1 TABLET BY MOUTH EVERY DAY 90 tablet 2 025 Active rosuvastatin (CRESTOR) 10 mg tablet TAKE 1 TABLET BY MOUTH EVERY DAY 90 tablet 1 025 Active gabapentin (NEURONTIN) 300 mg capsuleIndication s:Fibromyalgia TAKE 1 CAPSULE BY MOUTH EVERY DAY AT NIGHT 90 capsule 025 Active tirzepatide (Mounjaro) 5 mg/0.5 mL pen injector injection Inject 0.5 mL (5 mg total) under the skin every 7 days 2 mL 025 Active meloxicam (MOBIC) 7.5 mg tablet TAKE 1 TABLET BY MOUTH EVERY DAY 30 tablet 2 025 Active dulaglutide (Trulicity) 1.5 mg/0.5 mL pen injectorIndicatio ns:Type 2 diabetes mellitus with hyperlipidemia (HCC) INJECT 0.5 ML (1.5 MG TOTAL) UNDER THE SKIN EVERY 7 DAYS 6 mL 1 025 2024 Discontinued gabapentin (NEURONTIN) 300 mg capsuleIndication s:Fibromyalgia Take 1 capsule (300 mg total) by mouth nightly 90 capsule 025 2024 Discontinued meloxicam (MOBIC) 7.5 mg tablet Take 1 tablet (7.5 mg total) by mouth daily 90 tablet 025 2024 Discontinued Active Problems Problem Noted Date Diagnosed Date Chronic bilateral low back pain without sciatica 09/28/2024 Assessment & Plan (09/28/2024 1:34 PM CDT): Has been having chronic lumbar back pain, L>R that is achey and sensitive to the touch. Has tried Tylenol and increased dose of Cymbalta. Likely autoimmune etiology due to positive LORRAINE. Will trial NSAIDs, gabapentin and physical therapy while autoimmune work-up is still ongoing. - Try taking the meloxicam a couple days a week as needed for pain - Try taking the gabapentin before bedtime - Follow up with physical therapy Fibromyalgia 09/28/2024 Assessment & Plan (01/13/2025 12:29 AM CDT): Continue Gabapentin, Cymbalta and exercise/activity. Assessment & Plan (10/13/2024 1:49 PM CDT): Ongoing chronic pain, fatigue and positive LORRAINE has prompted an autoimmune work- up by [facility]. Pain spots may seem to coincide with fibromyalgia tender points, but antibody titers are not yet pointing to one certain autoimmune diagnosis. In the meantime, while work-up is ongoing, we will attempt to symptomatically treat the chronic pain in her neck, shoulder and lower back. - Get plenty of exercise - Eat a healthy diet - Try taking the meloxicam a couple days a week as needed for pain - Try taking the gabapentin before bedtime - reviewed risks,Benefits, alternatives side effects and proper use of the medication. If she does well on the nighttime dose of gabapentin may increase to b.I.d. or t.I.d. dosing Breast cancer screening by mammogram 08/11/2024 Assessment & Plan (08/11/2024 9:31 PM FINISHER POLISHER): Mammogram order provided BMI 38.0-38.9,adult 04/13/2024 Assessment & Plan (01/04/2025 9:35 AM CDT): Discussed the patient's BMI. The BMI is above average. BMI management plan is completed. BMI Follow-up includes: nutrition counseling, exercise counseling and education provided. Assessment & Plan (08/03/2024 8:24 AM FINISHER POLISHER): Discussed the patient's BMI. The BMI is above average. BMI management plan is completed. BMI Follow-up includes: nutrition counseling, exercise counseling and education provided. Assessment & Plan (04/13/2024 10:49 AM CDT): Discussed the patient's BMI. The BMI is above average. BMI management plan is completed. BMI Follow-up includes: nutrition counseling, exercise counseling and education provided. Positive LORRAINE (antinuclear antibody) 04/13/2024 Overview (11/29/2024): [facility] 11/23/24: +LORRAINE >1:5120 nucleolar and homogenous [facility] 05/07/24: LORRAINE 1:2560 nucleolar and homogenous US right hand/wrist (05/15/24): 1) Dorsal wrist: Marked synovial thickening. 2) 2nd and 3rd PIP joints: Mild synovial thickening. 3) No other significant findings appreciated on US examination. Assessment & Plan (01/13/2025 12:28 AM CDT): Continue to follow with Rheumatolgy Assessment & Plan (11/23/2024 10:53 AM CDT): 59-year-old female with PMHx of depression, anxiety, HTN, HLD, T2DM, B12 deficiency, Vitamin D deficiency, GERD, and cataracts c/o brain fog, fatigue, and generalized pain worse since eye surgery. PT helped with ROM in the neck but not with pain. She denies any rashes, photosensitivity, raynaud's, oral/nasal sores, or cardiopulmonary complaints to suggest a CTD. Continues to have diffuse soft tissue tenderness consistent with fibromyalgia. Previous rheumatologic evaluation with [facility] panel revealed a positive LORRAINE 1:2560 nucleolar and homogenous patterns but was otherwise unremarkable for any other autoantibodies. US of the R hand/wrist did not reveal any significant findings to suggest an inflammatory arthritis. Based on unremarkable US and isolated LORRAINE, there is no evidence to suggest a rheumatologic disease at this time. Symptoms remain the same since last visit without any new symptoms to suggest an underlying CTD. Will repeat the [facility] panel today to evaluate for any new markers. Will call with results. Should labs remain stable then she prefers to f/u in 1 year to continue monitoring. Assessment & Plan (09/28/2024 1:30 PM CDT): [facility] is following closely with regular [facility] panels to determine autoimmune etiology of chronic pain. - Keep your appointments with [facility] Assessment & Plan (08/11/2024 9:30 PM FINISHER POLISHER): Patient has elevated LORRAINE titer. Continue to follow with [facility] as she has quite a high titer but still not showing other antibodies. Has a follow-up scheduled in 6 months Assessment & Plan (05/21/2024 2:39 PM FINISHER POLISHER): 58-year-old female with PMHx of depression, anxiety, HTN, HLD, T2DM, B12 deficiency, Vitamin D deficiency, GERD, and cataracts c/o brain fog, fatigue, and generalized pain worse since eye surgery. PT helped with ROM in the neck but not with pain. There is diffuse soft tissue tenderness noted on exam suspicious for fibromyalgia. Vit D and B12 were both quite low and can contribute to FM like symptoms but she has only just started supplementation which can take several weeks to see improvement in these vitamin levels. She denies any rashes, photosensitivity, raynaud's, oral/nasal sores, or cardiopulmonary complaints to suggest a CTD. Rheumatologic evaluation with [facility] panel revealed a positive LORRAINE 1:2560 nucleolar and homogenous patterns but was otherwise unremarkable for any other autoantibodies. US of the R hand/wrist did not reveal any significant findings to suggest an inflammatory arthritis. Based on unremarkable US and isolated LORRAINE, there is no evidence to suggest a rheumatologic disease at this time. Due to elevated LORRAINE, will continue to monitor for any onset of symptoms to suggest a CTD. Consider repeating [facility] panel next visit. Follow up in 6 months. Sooner if needed. Assessment & Plan (05/07/2024 2:50 PM FINISHER POLISHER): 58-year-old female with PMHx of depression, anxiety, HTN, HLD, T2DM, B12 deficiency, Vitamin D deficiency, GERD, and cataracts c/o brain fog, fatigue, and generalized pain worse since eye surgery. PT helped with ROM in the neck but not with pain. There is diffuse soft tissue tenderness noted on exam today suspicious for fibromyalgia. Vit D and B12 were both quite low and can contribute to FM like symptoms but she has not started supplementation yet. She denies any rashes, photosensitivity, raynaud's, oral/nasal sores, or cardiopulmonary complaints to suggest a CTD. Symptoms and exam are suspicious for fibromyalgia vs symptoms of B12/Vitamin D deficiency. Will order appropriate serologies and a R hand/wrist to further evaluate. Encourage her to start B12 1000mcg and Vitamin D3 5000IU daily. Follow up in 2 weeks. Sooner if needed. Seen with Dr. Ocasio. Assessment & Plan (04/13/2024 11:28 AM CDT): Positive LORRAINE with elevated titers. Referral to [facility] Rhe[facility]ology placed. Vitamin D deficiency 04/13/2024 Assessment & Plan (01/13/2025 12:29 AM CDT): supplement Assessment & Plan (08/11/2024 9:31 PM FINISHER POLISHER): Supplement Assessment & Plan (05/21/2024 2:39 PM FINISHER POLISHER): Consider repeating levels 12 weeks after starting supplementation to ensure proper absorption. Assessment & Plan (04/13/2024 11:28 AM CDT): Supplement with Vit D3 5,000 international units daily. Neck pain 02/18/2024 Assessment & Plan (09/28/2024 1:33 PM CDT): Has been having chronic neck and shoulder pain, L>R that is achey and sensitive to the touch. Has tried Tylenol and increased dose of Cymbalta. Likely autoimmune etiology due to positive LORRAINE. Will trial NSAIDs, gabapentin and physical therapy while autoimmune work-up is still ongoing. - Try taking the meloxicam a couple days a week as needed for pain - Try taking the gabapentin before bedtime - Follow up with physical therapy Assessment & Plan (02/18/2024 11:32 PM CDT): This is a significant, separately identifiable problem that was evaluated and managed on the same day as the wellness exam Patient has persistent neck pain. She has just felt exhausted. She had surgery of her eyes she had to keep her face down for over a week and has been uncomfortable since. Recommend physical therapy. Order placed. Will follow-up pending these results. May also utilize lidocaine patches and an anti-inflammatory as needed PMB (postmenopausal bleeding) 02/18/2024 Assessment & Plan (04/15/2024 10:14 PM CDT): Resolved. Underwent pelvic US which revealed fibroid and thickened endometrial lining (5.1 mm). Then had Hyst D&C with myomectomy. Pathology with [facility] confirmed benign fibroid/endometrial lining Assessment & Plan (02/18/2024 11:32 PM CDT): This is a significant, separately identifiable problem that was evaluated and managed on the same day as the wellness exam Patient has postmenopausal bleeding. This has happened before with Dr. Madiha banda. Sounds like she had an endometrial biopsy in 2022 was negative but she is having symptoms again and bleeding. Will check an ultrasound. Follow up pending those results Low serum vitamin B12 08/07/2023 Assessment & Plan (01/13/2025 12:28 AM CDT): Supplement b12 otc Assessment & Plan (08/11/2024 9:30 PM FINISHER POLISHER): Supplement Assessment & Plan (04/13/2024 11:28 AM CDT): Supplement with B12 1,000 mcg daily. Assessment & Plan (02/18/2024 11:31 PM CDT): Supplement Assessment & Plan (08/07/2023 9:54 PM FINISHER POLISHER): Vitamin B12 is low. Start B12 1,000mcg daily available over the counter. Hypertension associated with diabetes 03/27/2023 Assessment & Plan (01/13/2025 12:28 AM CDT): Bp is stable/in acceptable range for any co-morbidities. Encouraged to limit sodium intake and exercise for weight control. Continue lisinopril 2.5 Assessment & Plan (09/28/2024 1:26 PM CDT): Take blood pressure medication as prescribed Monitor your blood pressure using a cuff at home (top number <120/130, bottom number <80/90 Participate in 30-60 minutes of moderate exercise 5-6 days a week Eat less salt by avoiding processed foods and canned foods. Buy fresh or fresh- frozen vegetables. (<1500 mg of sodium a day) Get plenty of vegetables, fiber, nuts, beans, low-fat foods, fish in your diet Limit alcohol consumption Assessment & Plan (08/11/2024 9:30 PM FINISHER POLISHER): Bp is stable/in acceptable range for any co-morbidities. Encouraged to limit sodium intake and exercise for weight control. Continue lisinopril 2.5 and triamterene hydrochlorothiazide Assessment & Plan (02/18/2024 11:31 PM CDT): Bp is stable/in acceptable range for any co-morbidities. Encouraged to limit sodium intake and exercise for weight control. Continue lisinopril 2.5 and triamterene hydrochlorothiazide Assessment & Plan (01/08/2024 4:18 PM CDT): Bp is stable/in acceptable range for any co-morbidities. Encouraged to limit sodium intake and exercise for weight control. Continue triamterene hydrochlorothiazide and lisinopril Assessment & Plan (10/01/2023 12:11 PM CDT): Bp is stable/in acceptable range for any co-morbidities. Encouraged to limit sodium intake and exercise for weight control. Continue lisinopril 2.5 and triamterene/hydrochlorothiazide Assessment & Plan (08/07/2023 9:53 PM FINISHER POLISHER): Bp is stable/in acceptable range for any co-morbidities. Encouraged to limit sodium intake and exercise for weight control. Stressed importance of continued A1c control to minimize the half-way effects of diabetes. Bring accuchecks to office when instructed to do so. Check A1c about every 3-6 months. Take medication as prescribed. Get annual eye exam. Encouraged LUIS/Statin if able to tolerate. Encouraged weight control and encouraged diabetic diet and exercise. Continue 3 mg Trulicity and lisinopril 2.5 triamterene hydrochlorothiazide combination. Assessment & Plan (03/27/2023 8:23 PM CDT): Bp is stable/in acceptable range for any co-morbidities. Encouraged to limit sodium intake and exercise for weight control. Continue lisinopril 2.5 and triamterene hydrochlorothiazide Morbid obesity 03/18/2023 Assessment & Plan (01/13/2025 12:28 AM CDT): Discussed the patient's BMI. The BMI is above average. BMI management plan is completed. BMI Follow-up includes: nutrition counseling, exercise counseling and education provided. Patient has an obesity-related condition (not limited to: hypertension, obstructive sleep apnea, osteoarthritis, hyperlipidemia, diabetes, etc.). Therefore, morbid obesity may be documented for patients with a BMI between 35.00-39.99. Assessment & Plan (09/28/2024 9:16 AM CDT): Discussed the patient's BMI. The BMI is above average. BMI management plan is completed. BMI Follow-up includes: nutrition counseling, exercise counseling and education provided. Assessment & Plan (08/11/2024 9:31 PM FINISHER POLISHER): Discussed the patient's BMI. The BMI is above average. BMI management plan is completed. BMI Follow-up includes: nutrition counseling, exercise counseling and education provided. Patient has an obesity-related condition (not limited to: hypertension, obstructive sleep apnea, osteoarthritis, hyperlipidemia, diabetes, etc.). Therefore, morbid obesity may be documented for patients with a BMI between 35.00-39.99. Assessment & Plan (04/15/2024 10:15 PM CDT): Discussed the patient's BMI. The BMI is above average. BMI management plan is completed. BMI Follow-up includes: nutrition counseling, exercise counseling and education provided. Patient has an obesity-related condition (not limited to: hypertension, obstructive sleep apnea, osteoarthritis, hyperlipidemia, diabetes, etc.). Therefore, morbid obesity may be documented for patients with a BMI between 35.00-39.99. Assessment & Plan (02/18/2024 11:31 PM CDT): Discussed the patient's BMI. The BMI is above average. BMI management plan is completed. BMI Follow-up includes: nutrition counseling, exercise counseling and education provided. Patient has an obesity-related condition (not limited to: hypertension, obstructive sleep apnea, osteoarthritis, hyperlipidemia, diabetes, etc.). Therefore, morbid obesity may be documented for patients with a BMI between 35.00-39.99. Assessment & Plan (01/08/2024 4:17 PM CDT): Discussed the patient's BMI. The BMI is above average. BMI management plan is completed. BMI Follow-up includes: nutrition counseling, exercise counseling and education provided. Assessment & Plan (10/01/2023 12:11 PM CDT): Discussed the patient's BMI. The BMI is above average. BMI management plan is completed. BMI Follow-up includes: nutrition counseling, exercise counseling and education provided. Patient has an obesity-related condition (not limited to: hypertension, obstructive sleep apnea, osteoarthritis, hyperlipidemia, diabetes, etc.). Therefore, morbid obesity may be documented for patients with a BMI between 35.00-39.99. Assessment & Plan (08/07/2023 9:53 PM FINISHER POLISHER): Discussed the patient's BMI. The BMI is above average. BMI management plan is completed. BMI Follow-up includes: nutrition counseling, exercise counseling and education provided. Patient has an obesity-related condition (not limited to: hypertension, obstructive sleep apnea, osteoarthritis, hyperlipidemia, diabetes, etc.). Therefore, morbid obesity may be documented for patients with a BMI between 35.00-39.99. Assessment & Plan (06/01/2023 11:06 PM FINISHER POLISHER): Discussed the patient's BMI. The BMI is above average. BMI management plan is completed. BMI Follow-up includes: nutrition counseling, exercise counseling and education provided. Patient has an obesity-related condition (not limited to: hypertension, obstructive sleep apnea, osteoarthritis, hyperlipidemia, diabetes, etc.). Therefore, morbid obesity may be documented for patients with a BMI between 35.00-39.99. Assessment & Plan (03/27/2023 8:24 PM CDT): Discussed the patient's BMI. The BMI is above average. BMI management plan is completed. BMI Follow-up includes: nutrition counseling, exercise counseling and education provided. Discussed the patient's BMI. Patient has an obesity-related condition (not limited to: hypertension, obstructive sleep apnea, osteoarthritis, hyperlipidemia, diabetes, etc.). Therefore, morbid obesity may be documented for patients with a BMI between 35.00-39.99. Fatigue 07/11/2021 Assessment & Plan (09/28/2024 1:19 PM CDT): Your previous vitamin B12 and D levels were on the lower range of normal. Keep taking your supplements and we will check levels again. Assessment & Plan (02/18/2024 11:30 PM CDT): Probably multifactorial. Check labs and followup to re-evaluate Assessment & Plan (10/01/2023 12:11 PM CDT): Probably multifactorial. Check labs and followup to re-evaluate Labs recently have been all normal. I am concerned that she may just not be getting enough calories and protein on a daily basis to support her daily activity as well as her brain function. Encouraged a minimum of about 17 1800 calories a day with 50-60 g of protein daily. Discussed at length different protein sources and ways to enhance her foods. Will have her follow-up in 4-6 weeks to reassess and if still feeling this way may need additional workup. Assessment & Plan (03/27/2023 8:23 PM CDT): Probably multifactorial. Check labs and followup to re-evaluate Assessment & Plan (02/12/2023 11:04 PM CDT): Probably multifactorial. Check labs and followup to re-evaluate Assessment & Plan (01/17/2022 8:29 PM CDT): Probably multifactorial. Check labs and followup to re-evaluate Assessment & Plan (07/11/2021 11:18 AM FINISHER POLISHER): Probably multifactorial. Check labs and followup to re-evaluate Gastroesophageal reflux disease without esophagi tis 10/11/2020 Assessment & Plan (02/18/2024 11:30 PM CDT): Continue PPI p.r.n.. Encouraged to try to decrease as able to tolerate based on symptoms Assessment & Plan (01/08/2024 4:14 PM CDT): Symptoms are stable with omeprazole p.r.n. Assessment & Plan (08/01/2022 7:10 PM FINISHER POLISHER): Continue PPI Assessment & Plan (07/11/2021 11:18 AM FINISHER POLISHER): Continue PPI Assessment & Plan (02/08/2021 7:38 PM CDT): Encouraged to call Dr. Prince office for further instructions/referral. I will also request his notes -- Will start referral to [facility]. Continue omeprazole. Assessment & Plan (10/11/2020 1:49 PM CDT): Continue PPI. Increase to b.i.d.. Will refer to GI for further evaluation due to her persistent symptoms. Type 2 diabetes mellitus with hyperlipidemia Assessment & Plan (01/13/2025 12:28 AM CDT): Encouraged patient to follow low fat/low chol diet like the Mediterranean diet. Increase good fats in the diet. Increase exercise. Monitor labs as needed. Continue crestor 10 Assessment & Plan (08/11/2024 9:30 PM FINISHER POLISHER): Encouraged patient to follow low fat/low chol diet like the Mediterranean diet. Increase good fats in the diet. Increase exercise. Monitor labs as needed. Continue Crestor 10 Assessment & Plan (02/18/2024 11:30 PM CDT): Encouraged patient to follow low fat/low chol diet like the Mediterranean diet. Increase good fats in the diet. Increase exercise. Monitor labs as needed. Continue Crestor 10 Assessment & Plan (01/08/2024 4:17 PM CDT): Encouraged patient to follow low fat/low chol diet like the Mediterranean diet. Increase good fats in the diet. Increase exercise. Monitor labs as needed. Continue Crestor 10 Assessment & Plan (10/01/2023 12:10 PM CDT): Encouraged patient to follow low fat/low chol diet like the Mediterranean diet. Increase good fats in the diet. Increase exercise. Monitor labs as needed. Continue Crestor 10 Stressed importance of continued A1c control to minimize the terminal carman effects of diabetes. Bring accuchecks to office when instructed to do so. Check A1c about every 3-6 months. Take medication as prescribed. Get annual eye exam. Encouraged LUIS/Statin if able to tolerate. Encouraged weight control and encouraged diabetic diet and exercise. Continue Trulicity 3 mg. May need to pull back if her appetite does not improve and increase with her daily caloric intake as well as protein intake Assessment & Plan (08/07/2023 9:53 PM FINISHER POLISHER): Encouraged patient to follow low fat/low chol diet like the Mediterranean diet. Increase good fats in the diet. Increase exercise. Monitor labs as needed. Continue Crestor 10 Assessment & Plan (03/27/2023 8:23 PM CDT): Encouraged patient to follow low fat/low chol diet like the Mediterranean diet. Increase good fats in the diet. Increase exercise. Monitor labs as needed. Continue Crestor 10 Assessment & Plan (02/12/2023 11:04 PM CDT): Encouraged patient to follow low fat/low chol diet like the Mediterranean diet. Increase good fats in the diet. Increase exercise. Monitor labs as needed. Continue Crestor 10 Assessment & Plan (08/01/2022 7:10 PM FINISHER POLISHER): Encouraged patient to follow low fat/low chol diet like the Mediterranean diet. Increase good fats in the diet. Increase exercise. Monitor labs as needed. Continue Crestor 10 Assessment & Plan (01/17/2022 8:29 PM CDT): Encouraged patient to follow low fat/low chol diet like the Mediterranean diet. Increase good fats in the diet. Increase exercise. Monitor labs as needed. Continue Crestor Assessment & Plan (07/11/2021 11:18 AM FINISHER POLISHER): Encouraged patient to follow fat/low chol diet like the Mediterranean diet. Increase good fats in the diet. Increase exercise. Monitor labs as needed. Continue statin Assessment & Plan (02/08/2021 7:42 PM CDT): Encouraged patient to follow fat/low chol diet like the Mediterranean diet. Increase good fats in the diet. Increase exercise. Monitor labs as needed. Continue Crestor Assessment & Plan (10/11/2020 1:52 PM CDT): Encouraged patient to follow fat/low chol diet like the Mediterranean diet. Increase good fats in the diet. Increase exercise. Monitor labs as needed. Continue statin Type 2 diabetes mellitus wit hout complication, without long-term current use of insulin 07/06/2020 Assessment & Plan (01/13/2025 12:27 AM CDT): Stressed importance of continued A1c control to minimize the half-way effects of diabetes. Bring accuchecks to office when instructed to do so. Check A1c about every 3-6 months. Take medication as prescribed. Get annual eye exam. Encouraged LUIS/Statin if able to tolerate. Encouraged weight control and encouraged diabetic diet and exercise. A1c is controlled, but her weight has plateued. Stop the Trulicity and transition to 5mg Mounjaro. Reviewed risks, benefits, alternatives, side effects and proper use. Will titrate up as tolerated. Assessment & Plan (09/28/2024 1:27 PM CDT): Your A1c has been stable. Continue taking your Trulicity. Will have to get your A1c checked every 3-6 months Reasonable A1c of <7 Check the bottoms of your feet See your eye doctor yearly Sweating, shaking, hunger and anxiety can indicate hypoglycemia Strict weight management and monitoring carb intake Assessment & Plan (08/11/2024 9:30 PM FINISHER POLISHER): Stressed importance of continued A1c control to minimize the terminal carman effects of diabetes. Bring accuchecks to office when instructed to do so. Check A1c about every 3-6 months. Take medication as prescribed. Get annual eye exam. Encouraged LUIS/Statin if able to tolerate. Encouraged weight control and encouraged diabetic diet and exercise. A1c is well controlled at 5.4. Continue Trulicity 1.5 mg per week Assessment & Plan (02/18/2024 11:30 PM CDT): Stressed importance of continued A1c control to minimize the terminal carman effects of diabetes. Bring accuchecks to office when instructed to do so. Check A1c about every 3-6 months. Take medication as prescribed. Get annual eye exam. Encouraged LUIS/Statin if able to tolerate. Encouraged weight control and encouraged diabetic diet and exercise. A1c has been very tightly controlled. Continue Trulicity 1.5 per week. Assessment & Plan (01/08/2024 4:16 PM CDT): Stressed importance of continued A1c control to minimize the half-way effects of diabetes. Bring accuchecks to office when instructed to do so. Check A1c about every 3-6 months. Take medication as prescribed. Get annual eye exam. Encouraged LUIS/Statin if able to tolerate. Encouraged weight control and encouraged diabetic diet and exercise. Most recent A1c was in July of 2023 and it was 5.1. Will plan to continue the Trulicity 1.5 mg per week. Will check A1c again for her preop labs to confirm stability Assessment & Plan (08/07/2023 9:53 PM FINISHER POLISHER): Stressed importance of continued A1c control to minimize the half-way effects of diabetes. Bring accuchecks to office when instructed to do so. Check A1c about every 3-6 months. Take medication as prescribed. Get annual eye exam. Encouraged LUIS/Statin if able to tolerate. Encouraged weight control and encouraged diabetic diet and exercise. A1c is stable at 5.2. Continue Trulicity 3 mg. Assessment & Plan (03/27/2023 8:23 PM CDT): Stressed importance of continued A1c control to minimize the terminal carman effects of diabetes. Bring accuchecks to office when instructed to do so. Check A1c about every 3-6 months. Take medication as prescribed. Get annual eye exam. Encouraged LUIS/Statin if able to tolerate. Encouraged weight control and encouraged diabetic diet and exercise. Last A1c was 5.2. Tolerating the Trulicity 3 mg weekly. She is also seen a little success with weight loss Assessment & Plan (02/12/2023 11:20 PM CDT): This is a significant, separately identifiable problem that was evaluated and managed on the same day as the wellness exam Stressed importance of continued A1c control to minimize the half-way effects of diabetes. Bring accuchecks to office when instructed to do so. Check A1c about every 3-6 months. Take medication as prescribed. Get annual eye exam. Encouraged LUIS/Statin if able to tolerate. Encouraged weight control and encouraged diabetic diet and exercise. A1c is tightly controlled. Will increase the Trulicity to 3 mg to see if we can get more assistance with weight loss Assessment & Plan (08/01/2022 7:10 PM FINISHER POLISHER): Stressed importance of continued A1c control to minimize the half-way effects of diabetes. Bring accuchecks to office when instructed to do so. Check A1c about every 3-6 months. Take medication as prescribed. Get annual eye exam. Encouraged LUIS/Statin if able to tolerate. Encouraged weight control and encouraged diabetic diet and exercise. Continue Trulicity 1.5 weekly Assessment & Plan (01/17/2022 8:29 PM CDT): Stressed importance of continued A1c control to minimize the half-way effects of diabetes. Bring accuchecks to office when instructed to do so. Check A1c about every 3-6 months. Take medication as prescribed. Get annual eye exam. Encouraged LUIS/Statin if able to tolerate. Encouraged weight control and encouraged diabetic diet and exercise. Continue Trulicity Assessment & Plan (07/11/2021 11:18 AM FINISHER POLISHER): Stressed importance of continued A1c control to minimize the terminal carman effects of diabetes. Bring accuchecks to office when instructed to do so. Check A1c about every 3-6 months. Take medication as prescribed. Get annual eye exam. Encouraged LUIS/Statin if able to tolerate. Encouraged weight control and encouraged diabetic diet and exercise. Continue Trulicity as well controlled Assessment & Plan (02/08/2021 7:31 PM CDT): Stressed importance of continued A1c control to minimize the half-way effects of diabetes. Bring accuchecks to office when instructed to do so. Check A1c about every 3-6 months. Take medication as prescribed. Get annual eye exam. Encouraged LUIS/Statin if able to tolerate. Encouraged weight control and encouraged diabetic diet and exercise. Continue Trulicity Assessment & Plan (10/11/2020 1:50 PM CDT): Stressed importance of continued A1c control to minimize the terminal carman effects of diabetes. Bring accuchecks to office when instructed to do so. Check A1c about every 3-6 months. Take medication as prescribed. Get annual eye exam. Encouraged LUIS/Statin if able to tolerate. Encouraged weight control and encouraged diabetic diet and exercise. Will hold the Trulicity and monitor closely over the next 3 months. Recheck A1c at that time for stability and to decide if needs to restart GLP Assessment & Plan (07/06/2020 6:36 PM FINISHER POLISHER): Stressed importance of continued A1c control to minimize the half-way effects of diabetes. Bring accuchecks to office when instructed to do so. Check A1c about every 3-6 months. Take medication as prescribed. Get annual eye exam. Encouraged LUIS/Statin if able to tolerate. Encouraged weight control and encouraged diabetic diet and exercise. Continue Trulicity as well controlled. Discussed holding the Trulicity 0.75 as her A1c is 5.2 and has lost about 40# since the dx of her DM. She wants to continue it thru winter and my consider it in the spring. Slow transit constipation 10/11/2018 Assessment & Plan (07/06/2020 6:32 PM FINISHER POLISHER): Increase fiber, exercise, water. Add stool softner.bid If sxs persist, may use Miralax or prn linzess Assessment & Plan (02/29/2020 10:21 PM CDT): Continue Linzess, water and fiber. Assessment & Plan (07/20/2019 10:34 AM FINISHER POLISHER): Continue linzess prn Assessment & Plan (02/18/2019 8:10 PM CDT): Stable with Afuaess IC (interstitial cystitis) 10/11/2018 Assessment & Plan (01/04/2022 1:33 PM CDT): -She was diagnosed many years ago. She currently tries to avoid certain foods to control symptoms. Moderate episode of recurrent major depressive d isorder 10/11/2018 Assessment & Plan (01/13/2025 12:27 AM CDT): Symptoms are stable with the Cymbalta 60mg bid. Continue current regimen Assessment & Plan (09/28/2024 1:29 PM CDT): Still has some trouble falling asleep at night while also experiencing fatigue during the day. Likely due to underlying autoimmune process, as depression is being treated with medicine. - Your Cymbalta was increased to 60 mg BID. Make sure you are taking it as prescribed. Assessment & Plan (08/11/2024 9:29 PM FINISHER POLISHER): Depression has been well controlled with the Cymbalta 60 and she is tolerating well but her pain is not as well controlled. Recommend increasing Cymbalta 60 b.i.d. and see if this helps with some pain control. New prescription sent with increased dose Assessment & Plan (04/15/2024 10:17 PM CDT): Sixty Assessment & Plan (02/18/2024 11:30 PM CDT): Depression is stable with Cymbalta 60 Assessment & Plan (01/08/2024 4:16 PM CDT): Stable with Cymbalta 60 Assessment & Plan (10/01/2023 12:10 PM CDT): Depression symptoms have been stable with Cymbalta 60. Will continue. Assessment & Plan (08/07/2023 9:53 PM FINISHER POLISHER): Stable with Cymbalta 60 Assessment & Plan (03/27/2023 8:23 PM CDT): Depression is stable with Cymbalta 60 Assessment & Plan (02/12/2023 11:04 PM CDT): Stable with Cymbalta 60 Assessment & Plan (08/01/2022 7:10 PM FINISHER POLISHER): Stable with Cymbalta 60 Assessment & Plan (01/17/2022 8:28 PM CDT): Continue Cymbalta Assessment & Plan (07/11/2021 11:16 AM FINISHER POLISHER): Continue Cymbalta. Refills sent to pharmacy. Assessment & Plan (02/08/2021 7:42 PM CDT): Continue cymbalta Assessment & Plan (10/11/2020 1:51 PM CDT): Stable with Cymbalta. Assessment & Plan (07/06/2020 6:34 PM FINISHER POLISHER): Continue cymbalta Assessment & Plan (02/29/2020 10:23 PM CDT): Stable with cymbalta. Assessment & Plan (12/15/2019 7:45 PM CDT): Continue cymbalta Assessment & Plan (07/20/2019 10:34 AM FINISHER POLISHER): Stable with the Wellbutrin and Cymbalta Assessment & Plan (02/18/2019 8:10 PM CDT): Improvement with the addition of the Abilify 5 mg. Continue the Wellbutrin and the Cymbalta. Will continue to monitor closely. Assessment & Plan (01/06/2019 7:16 PM CDT): Stable. Counseling is helping. Continue current medication regimen. Discussed the possibility of bipolar. Will monitor sxs closely. May consider increasing the Abilify vs considering Vraylar. Followup 4-6 weeks. Assessment & Plan (11/25/2018 9:08 PM CDT): Enocuraged to consider counseling regarding food issued that she experienced as a child. Reviewed she will struggle with weight loss success until underlying issues are addressed. She agrees. Will followup in 2-3 months so she can pursue counseling. Assessment & Plan (10/22/2018 4:23 PM CDT): Improving with the Cymbalta 60mg, Wellbutrin Xl 150mg and Abilfy 5mg. Continue to monitor Resolved Problems Problem Noted Date Diagnosed Date Resolved Date Annual physical exam 02/18/2024 025 Assessment & Plan (02/18/2024 11:32 PM CDT): Encouraged healthy lifestyle, good nutrition and exercise. Encouraged Calcium and Vitamin D and weight bearing exercise for bone health. Reviewed immunizations Reviewed age appropirate screenings. Encounter for pre-operative examination 01/08/2024 02/18/2024 Assessment & Plan (01/08/2024 4:21 PM CDT): Pre-op EKG results are on the chart and are normal. Will order pre-operative labs for review. I have examined this patient and ordered the appropriate lab work/tests. I have reviewed with patient the inherent risks associated with surgery, not limited to bleeding, infection, DVT, etc. EKG was normal. Patient denies any cardiac sxs with activity. Therefore, to the best of my knowledge, there is not a medical contraindication for undergoing this elective surgery with general and/or regional anesthesia if her pre-operative labs return normal. Will complete preoperative forms when labs are completed. Vision changes 01/08/2024 02/18/2024 Assessment & Plan (01/08/2024 4:17 PM CDT): Patient noticed vision changes. She is following with Dr[facility] Oni Monique [facility] and is planning a vitrectomy and cataract extraction on January 09. Acute non-recurrent pansinusitis 06/01/2023 08/07/2023 Assessment & Plan (06/01/2023 11:04 PM FINISHER POLISHER): Start antibiotic, antihistamine (Claritin OR Zyrtec), Mucinex 12hour and Steroid nasal spray (Flonase). Push fluids. Rest. Supportive care. If sxs worsen or don\'t improve, pt is to followup in the office. Acute bacterial conjunctivitis of left eye 06/01/2023 08/07/2023 Assessment & Plan (06/01/2023 11:06 PM FINISHER POLISHER): Suspect bacterial conjunctivitis. Cipro eye drops as isntructed. Keep area clean to avoid spread. Followup if symptoms worsen or don't resolve. BMI 37.0-37.9, adult 03/18/2023 025 Assessment & Plan (09/28/2024 9:15 AM CDT): Discussed the patient's BMI. The BMI is above average. BMI management plan is completed. BMI Follow-up includes: nutrition counseling, exercise counseling and education provided. Assessment & Plan (02/18/2024 11:30 PM CDT): Discussed the patient's BMI. The BMI is above average. BMI management plan is completed. BMI Follow-up includes: nutrition counseling, exercise counseling and education provided. Assessment & Plan (10/01/2023 12:11 PM CDT): Discussed the patient's BMI. The BMI is above average. BMI management plan is completed. BMI Follow-up includes: nutrition counseling, exercise counseling and education provided. Assessment & Plan (08/07/2023 9:53 PM FINISHER POLISHER): Discussed the patient's BMI. The BMI is above average. BMI management plan is completed. BMI Follow-up includes: nutrition counseling, exercise counseling and education provided. Assessment & Plan (06/01/2023 11:07 PM FINISHER POLISHER): Discussed the patient's BMI. The BMI is above average. BMI management plan is completed. BMI Follow-up includes: nutrition counseling, exercise counseling and education provided. Assessment & Plan (03/27/2023 8:24 PM CDT): Discussed the patient's BMI. The BMI is above average. BMI management plan is completed. BMI Follow-up includes: nutrition counseling, exercise counseling and education provided. Annual physical exam 02/12/2023 023 Assessment & Plan (02/12/2023 11:05 PM CDT): Encouraged healthy lifestyle, good nutrition and exercise. Encouraged Calcium and Vitamin D and weight bearing exercise for bone health. Reviewed immunizations Reviewed age appropirate screenings. Tinea cruris 02/12/2023 02/18/2024 Assessment & Plan (03/27/2023 8:23 PM CDT): Continue Lotrisone p.r.n.. Keep area clean and dry Assessment & Plan (02/12/2023 11:20 PM CDT): This is a significant, separately identifiable problem that was evaluated and managed on the same day as the wellness exam Rash appears consistent with tinea. Encouraged to keep the area clean and dry. Dry off with a hair package drier uncle setting and then apply Lotrisone cream. Once the rash is cleared may use nystatin powder p.r.n. to keep the area dry and avoid return. If symptoms worsen she is to follow up immediately Morbid obesity 02/04/2023 03/18/2023 Assessment & Plan (02/12/2023 11:04 PM CDT): Discussed the patient's BMI. The BMI is above average. BMI management plan is completed. BMI Follow-up includes: nutrition counseling, exercise counseling and education provided. Patient has an obesity-related condition (not limited to: hypertension, obstructive sleep apnea, osteoarthritis, hyperlipidemia, diabetes, etc.). Therefore, morbid obesity may be documented for patients with a BMI between 35.00-39.99. BMI 38.0-38.9,adult 02/04/2023 03/18/20 Assessment & Plan (02/04/2023 10:40 AM CDT): Discussed the patient's BMI. The BMI is above average. BMI management plan is completed. BMI Follow-up includes: nutrition counseling, exercise counseling and education provided. Pain of left great toe 09/19/202203/27 Assessment & Plan (09/19/2022 6:14 PM CDT): Patient's toenails are to not been digging into the tissue. Recommend referral to Podiatry as this nail may need to be removed. Provided names of providers in the area and she will call set up her appointment as she isn't need an actual insurance referral. Morbid obesity 09/03/2022 02/04/2023 Assessment & Plan (09/19/2022 6:14 PM CDT): Discussed the patient's BMI. The BMI is above average. BMI management plan is completed. BMI Follow-up includes: nutrition counseling, exercise counseling and education provided. Patient has an obesity-related condition (not limited to: hypertension, obstructive sleep apnea, osteoarthritis, hyperlipidemia, diabetes, etc.). Therefore, morbid obesity may be documented for patients with a BMI between 35.00-39.99. BMI 38.0-38.9,adult 09/03/2022 02/05/20 Assessment & Plan (09/03/2022 10:11 AM CDT): Discussed the patient's BMI. The BMI is above average. BMI management plan is completed. BMI Follow-up includes: nutrition counseling, exercise counseling and education provided. Left foot pain 05/25/2022 03/27/2023 Assessment & Plan (05/25/2022 12:05 PM FINISHER POLISHER): Patient has had left foot pain for the last couple of months. It appears she has either a corn or a plantar wart on the lateral part of her left foot under the 5th metatarsal. Recommend to Podiatry as it is deep and very painful. Provided referral information for Dr. Mark and [facility] in [place]. Encouraged her to just call on her own to set the appointment as she does not need a referral. Also discussed that she could get some mole skin and cut a hole to offload the weight on that direct area until she is able to get in with the laundry tech. Provided an example off the table paper and she voiced understanding. Morbid obesity 01/17/2022 09/03/2022 Assessment & Plan (08/01/2022 7:11 PM FINISHER POLISHER): Discussed the patient's BMI. The BMI is above average. BMI management plan is completed. BMI Follow-up includes: nutrition counseling, exercise counseling and education provided. Patient has an obesity-related condition (not limited to: hypertension, obstructive sleep apnea, osteoarthritis, hyperlipidemia, diabetes, etc.). Therefore, morbid obesity may be documented for patients with a BMI between 35.00-39.99. Assessment & Plan (05/25/2022 12:03 PM FINISHER POLISHER): Discussed the patient's BMI. The BMI is above average. BMI management plan is completed. BMI Follow-up includes: nutrition counseling, exercise counseling and education provided. Patient has an obesity-related condition (not limited to: hypertension, obstructive sleep apnea, osteoarthritis, hyperlipidemia, diabetes, etc.). Therefore, morbid obesity may be documented for patients with a BMI between 35.00-39.99. Assessment & Plan (01/17/2022 8:31 PM CDT): Discussed the patient's BMI. The BMI is above average. BMI management plan is completed. BMI Follow-up includes: nutrition counseling, exercise counseling and education provided. Patient has an obesity-related condition (not limited to: hypertension, obstructive sleep apnea, osteoarthritis, hyperlipidemia, diabetes, etc.). Therefore, morbid obesity may be documented for patients with a BMI between 35.00-39.99. Obesity (BMI 30-39.9) 01/08/20222021 BMI 38.0-38.9,adult 01/08/2022 09/04/19 Assessment & Plan (08/01/2022 7:11 PM FINISHER POLISHER): Discussed the patient's BMI. The BMI is above average. BMI management plan is completed. BMI Follow-up includes: nutrition counseling, exercise counseling and education provided. Assessment & Plan (05/25/2022 12:03 PM FINISHER POLISHER): Discussed the patient's BMI. The BMI is above average. BMI management plan is completed. BMI Follow-up includes: nutrition counseling, exercise counseling and education provided. Assessment & Plan (01/08/2022 10:41 AM CDT): Obesity is unchanged. Discussed the patient's BMI. The BMI is above average. BMI management plan is completed. BMI Follow-up includes: nutrition counseling, exercise counseling and education provided. Recurrent UTI 01/04/2022 08/01/2022 Assessment & Plan (07/08/2022 3:22 PM FINISHER POLISHER): -Doing well with use of macrobid post intercourse. No UTI's since starting this regimen. -She had renal US done at [facility] which was normal. PLAN: -Continue to use macrobid post intercourse. -F/U in 1 year or sooner if issues arise. Assessment & Plan (01/17/2022 8:30 PM CDT): Continue per Urology. Completing workup. States may end up on antibiotic after intercourse. Assessment & Plan (01/04/2022 2:38 PM CDT): -Notices most of the time, she gets UTI's post sex. She states she has to urinate prior to intercourse otherwise she leaks and then is unable to urinate after intercourse. -She bought [place] to try and prevent UTI's but has not started this yet. This contains citric acid and other things that could possibly exacerbate IC. Will hold off on having patient try this. -Discussed use of 1 macrobid pill after intercourse. She is agreeable to this plan. PLAN: - Take macrobid 100mg right after intercourse. -Continue adequate fluid intake. -Try to urinate after intercourse or drink lots of water post intercourse. -Urinate regularly. -Renal US ordered to rule out stones or anatomical abnormalities. -Will f/u in 6 months. Frequent urination 10/13/2021 Assessment & Plan (10/13/2021 6:43 AM CDT): Pt presents with dysuria. Urine dip completed. Send urine culture. Antibiotic to pharmacy. Reviewed bladder care. Recommend repeating culture in 10-14 days to prove cure. If persists, may consider urology referral. Obesity (BMI 30-39.9) 10/12/20212021 Assessment & Plan (10/12/2021 4:26 PM CDT): Obesity is unchanged. Discussed the patient's BMI. The BMI is above average. BMI management plan is completed. BMI Follow-up includes: nutrition counseling, exercise counseling and education provided. BMI 38.0-38.9,adult 10/12/2021 01/09/20 Assessment & Plan (10/12/2021 4:27 PM CDT): Obesity is unchanged. Discussed the patient's BMI. The BMI is above average. BMI management plan is completed. BMI Follow-up includes: nutrition counseling, exercise counseling and education provided. Dysuria 08/29/2021 02/18/2024 Assessment & Plan (03/27/2023 8:25 PM CDT): Patient is having some malodorous urine and dysuria Will empirically treat with Macrobid. Await urine culture results. Assessment & Plan (10/13/2021 6:43 AM CDT): Pt presents with dysuria. Urine dip completed. Send urine culture. Antibiotic to pharmacy. Reviewed bladder care. Recommend repeating culture in 10-14 days to prove cure. If persists, may consider urology referral. Eye pain, bilateral 08/29/2021 02/18/20 24 Assessment & Plan (08/29/2021 9:46 PM FINISHER POLISHER): Will start with eye drops. Reviewed with patient that usually conjunctivitis doesn't have PAIN so recommend calling Ophthamology for appointment. She is in agreement. If sxs worsen, pain increases or visual changes, she is to go to the ER> Obesity (BMI 30-39.9) 08/18/20212021 Assessment & Plan (08/18/2021 9:06 AM FINISHER POLISHER): Obesity is unchanged. Discussed the patient's BMI. The BMI is above average. BMI management plan is completed. BMI Follow-up includes: nutrition counseling, exercise counseling and education provided. BMI 39.0-39.9,adult 08/18/2021 10/13/19 22 Assessment & Plan (08/18/2021 9:06 AM FINISHER POLISHER): Obesity is unchanged. Discussed the patient's BMI. The BMI is above average. BMI management plan is completed. BMI Follow-up includes: nutrition counseling, exercise counseling and education provided. Obesity (BMI 30-39.9) 07/10/20212021 Assessment & Plan (07/10/2021 10:02 AM FINISHER POLISHER): Obesity is unchanged. Discussed the patient's BMI. The BMI is above average. BMI management plan is completed. BMI Follow-up includes: nutrition counseling, exercise counseling and education provided. BMI 38.0-38.9,adult 07/10/2021 08/19/19 22 Assessment & Plan (07/10/2021 10:02 AM FINISHER POLISHER): Obesity is unchanged. Discussed the patient's BMI. The BMI is above average. BMI management plan is completed. BMI Follow-up includes: nutrition counseling, exercise counseling and education provided. Obesity (BMI 30-39.9) 01/30/20212021 Assessment & Plan (01/30/2021 10:05 AM CDT): Obesity is unchanged. Discussed the patient's BMI. The BMI is above average. BMI management plan is completed. BMI Follow-up includes: nutrition counseling, exercise counseling and education provided. BMI 38.0-38.9,adult 01/30/2021 02/17/20 24 Assessment & Plan (01/08/2024 4:17 PM CDT): Discussed the patient's BMI. The BMI is above average. BMI management plan is completed. BMI Follow-up includes: nutrition counseling, exercise counseling and education provided. Patient has an obesity-related condition (not limited to: hypertension, obstructive sleep apnea, osteoarthritis, hyperlipidemia, diabetes, etc.). Therefore, morbid obesity may be documented for patients with a BMI between 35.00-39.99. Assessment & Plan (01/30/2021 10:05 AM CDT): Obesity is unchanged. Discussed the patient's BMI. The BMI is above average. BMI management plan is completed. BMI Follow-up includes: nutrition counseling, exercise counseling and education provided. Annual physical exam 07/06/2020 023 Assessment & Plan (01/17/2022 8:28 PM CDT): Encouraged healthy lifestyle, good nutrition and exercise. Encouraged Calcium and Vitamin D and weight bearing exercise for bone health. Reviewed immunizations Reviewed age appropirate screenings. Assessment & Plan (07/11/2021 11:17 AM FINISHER POLISHER): Encouraged healthy lifestyle, good nutrition and exercise. Encouraged Calcium and Vitamin D and weight bearing exercise for bone health. Reviewed immunizations Reviewed age appropirate screenings. Assessment & Plan (07/06/2020 6:37 PM FINISHER POLISHER): Encouraged healthy lifestyle, good nutrition and exercise. Encouraged Calcium and Vitamin D and weight bearing exercise for bone health. Reviewed immunizations Reviewed age appropirate screenings. BMI 36.0-36.9,adult 07/04/2020 01/31/20 Assessment & Plan (10/10/2020 9:07 AM CDT): Obesity is unchanged. Discussed the patient's BMI. The BMI is above average. BMI management plan is completed. BMI Follow-up includes: nutrition counseling, exercise counseling and education provided. Assessment & Plan (07/04/2020 10:18 AM FINISHER POLISHER): Obesity is unchanged. Discussed the patient's BMI. The BMI is above average. BMI management plan is completed. BMI Follow-up includes: nutrition counseling, exercise counseling and education provided. Obesity (BMI 30-39.9) 07/04/20202024 Assessment & Plan (01/04/2025 9:35 AM CDT): Discussed the patient's BMI. The BMI is above average. BMI management plan is completed. BMI Follow-up includes: nutrition counseling, exercise counseling and education provided. Assessment & Plan (10/10/2020 9:07 AM CDT): Obesity is unchanged. Discussed the patient's BMI. The BMI is above average. BMI management plan is completed. BMI Follow-up includes: nutrition counseling, exercise counseling and education provided. Assessment & Plan (07/04/2020 10:18 AM FINISHER POLISHER): Obesity is unchanged. Discussed the patient's BMI. The BMI is above average. BMI management plan is completed. BMI Follow-up includes: nutrition counseling, exercise counseling and education provided. Dysuria 12/15/2019 02/29/2020 Assessment & Plan (12/15/2019 7:48 PM CDT): Send urine for culture Will wait for culture to treat. BMI 40.0-44.9, adult 11/15/2019 020 Assessment & Plan (12/15/2019 7:40 PM CDT): Obesity is improved Discussed the patient's BMI. The BMI is above average. BMI management plan is completed. BMI Follow-up includes: nutrition counseling, exercise counseling and education provided. Assessment & Plan (11/15/2019 3:50 PM CDT): Obesity is unchanged. Discussed the patient's BMI. The BMI is above average. BMI management plan is completed. BMI Follow-up includes: nutrition counseling, exercise counseling and education provided. Type 2 diabetes mellitus with hyperlipidemia 0 02/29/2020 Assessment & Plan (12/15/2019 7:45 PM CDT): Encouraged patient to continue low fat/low chol diet. Continue exercise. Increase good fats in the diet. Monitor labs as needed. Start statin at next visit Assessment & Plan (11/16/2019 11:36 AM CDT): Discussed benefits of statin with DM dx. Will discuss and add ad next visit as pt is overwhelmed today Need for Tdap vaccination 07/20/2019 Assessment & Plan (07/20/2019 10:34 AM FINISHER POLISHER): Updated Tdap in office today Tremor 07/20/2019 02/18/2024 Assessment & Plan (12/15/2019 7:47 PM CDT): Has improved since accuchecks have improved with dx of DM. Will monitor and make referral if needed after next visit to reassess. Assessment & Plan (07/20/2019 10:35 AM FINISHER POLISHER): This is a significant, separately identifiable problem that was evaluated and managed on the same day as the wellness exam Tremor has been persistent. Discussed may be benign but she is young and no family history so will send to Neuro for further evaluation. She is in agreement. Annual physical exam 07/20/2019 020 Assessment & Plan (07/20/2019 10:34 AM FINISHER POLISHER): Encouraged healthy lifestyle, good nutrition and exercise. Encouraged Calcium and Vitamin D and weight bearing exercise for bone health. Reviewed immunizations Reviewed age appropirate screenings. Lipid screening 07/20/2019 11/15/2019 Assessment & Plan (07/20/2019 10:35 AM FINISHER POLISHER): Check labs Other fatigue 07/20/2019 11/15/2019 Assessment & Plan (07/20/2019 10:35 AM FINISHER POLISHER): Probably multifactorial. Check labs and followup to re-evaluate Breast cancer screening by mammogram 05/13/2019 02/18/2024 Assessment & Plan (01/17/2022 8:28 PM CDT): Mammogram order provided Assessment & Plan (07/11/2021 11:17 AM FINISHER POLISHER): Mammogram order was received from her cosmetic sales advisor. Will await results. Assessment & Plan (07/06/2020 6:35 PM FINISHER POLISHER): Mamm order provided Assessment & Plan (05/13/2019 2:08 PM FINISHER POLISHER): Mammogram order provided Acute pain of left shoulder 01/06/2019 02/29/2020 Overview (01/06/2019): No history of injury. Start NSAIDs. Do home exercises. If sxs persist, will consider PT. She declines at this time. Assessment & Plan (07/20/2019 10:32 AM FINISHER POLISHER): Resolved without further treatment Assessment & Plan (05/13/2019 2:08 PM FINISHER POLISHER): Persistent sxs. Refer to Ortho BMI 45.0-49.9, adult 01/05/2019 020 Assessment & Plan (07/20/2019 10:36 AM FINISHER POLISHER): Obesity is improving. Discussed the patient's BMI. The BMI is above average. BMI management plan is completed. BMI Follow-up includes: nutrition counseling, exercise counseling and education provided. Assessment & Plan (02/18/2019 8:09 PM CDT): Obesity is unchanged. Discussed the patient's BMI. The BMI is above average. BMI management plan is completed. BMI Follow-up includes: nutrition counseling, exercise counseling and education provided. Assessment & Plan (01/05/2019 11:11 AM CDT): Obesity is unchanged. Discussed the patient's BMI. The BMI is above average; BMI management plan is completed. General weight loss/lifestyle modification strategies discussed (elicit support from others; identify saboteurs; non-food rewards, etc). Encouraged increased exercise. BMI 40.0-44.9, adult 10/12/2018 019 Assessment & Plan (11/25/2018 9:08 PM CDT): Obesity is unchanged. Discussed the patient's BMI. The BMI is above average; BMI management plan is completed. General weight loss/lifestyle modification strategies discussed (elicit support from others; identify saboteurs; non-food rewards, etc). Encouraged increased exercise. Assessment & Plan (10/12/2018 4:24 PM CDT): Wants to start a weight loss program as went to the [facility] Bariatric information mtg and was told needed monthly weight monitor for a year before could be considered. Goal: Log foods, daily motion Class 2 severe obesity due t o excess calories with serious comorbidity and body mass index (BMI) of 37.0 to 37.9 in adult 10/12/2018 1 Assessment & Plan (04/12/2020 10:38 PM CDT): Obesity is unchanged. Discussed the patient's BMI. The BMI is above average. BMI management plan is completed. BMI Follow-up includes: nutrition counseling, exercise counseling and education provided. Assessment & Plan (02/29/2020 10:21 PM CDT): Obesity is improved. Discussed the patient's BMI. The BMI is above average. BMI management plan is completed. BMI Follow-up includes: nutrition counseling, exercise counseling and education provided. Assessment & Plan (12/15/2019 7:39 PM CDT): Obesity is improving. Discussed the patient's BMI. The BMI is above average. BMI management plan is completed. BMI Follow-up includes: nutrition counseling, exercise counseling and education provided. Assessment & Plan (11/15/2019 3:50 PM CDT): Obesity is unchanged. Discussed the patient's BMI. The BMI is above average. BMI management plan is completed. BMI Follow-up includes: nutrition counseling, exercise counseling and education provided. Assessment & Plan (07/20/2019 10:36 AM FINISHER POLISHER): Obesity is improving. Discussed the patient's BMI. The BMI is above average. BMI management plan is completed. BMI Follow-up includes: nutrition counseling, exercise counseling and education provided. Assessment & Plan (02/18/2019 8:10 PM CDT): Obesity is unchanged. Discussed the patient's BMI. The BMI is above average. BMI management plan is completed. BMI Follow-up includes: nutrition counseling, exercise counseling and education provided. Assessment & Plan (01/05/2019 11:12 AM CDT): Obesity is unchanged. Discussed the patient's BMI. The BMI is above average; BMI management plan is completed. General weight loss/lifestyle modification strategies discussed (elicit support from others; identify saboteurs; non-food rewards, etc). Encouraged increased exercise. Assessment & Plan (11/25/2018 9:08 PM CDT): Obesity is unchanged. Discussed the patient's BMI. The BMI is above average; BMI management plan is completed. General weight loss/lifestyle modification strategies discussed (elicit support from others; identify saboteurs; non-food rewards, etc). Encouraged increased exercise. Assessment & Plan (10/22/2018 4:21 PM CDT): Obesity is unchanged. Discussed the patient's BMI. The BMI is above average; BMI management plan is completed. General weight loss/lifestyle modification strategies discussed (elicit support from others; identify saboteurs; non-food rewards, etc). Menorrhagia with irregular cycle 10/11/2018 02/18/2024 Hypertension associated with diabetes 10/11/2018 02/29/2020 Assessment & Plan (12/15/2019 7:39 PM CDT): Continue triamterene/HCTZ. Add lisinopril for renal protection/monitor bp Reviewed risks, benefit, alternatives, side effects and proper use. Assessment & Plan (11/16/2019 11:31 AM CDT): Bp is stable/in acceptable range for any co-morbidities. Encouraged to limit sodium intake and exercise for weight control. bp is stable with diuretic. Reviewed with patient the value of adding lisinopril for renal protection. Will consider at next visit as pt is overwhelmed today. Assessment & Plan (07/20/2019 10:33 AM FINISHER POLISHER): Bp is stable/in acceptable range for any co-morbidities. Encouraged to limit sodium intake and exercise for weight control. Assessment & Plan (02/18/2019 8:09 PM CDT): Bp is stable/in acceptable range for any co-morbidities. Encouraged to limit sodium intake and exercise for weight control. Continue Maxzie. Assessment & Plan (10/22/2018 4:21 PM CDT): Bp is stable/in acceptable range for any co-morbidities. Encouraged to limit sodium intake and exercise for weight control. continue Maxzide Type 2 diabetes mellitus wit hout complication, without long-term current use of insulin 10/11/2018 07/06/2020 Assessment & Plan (04/12/2020 10:39 PM CDT): Stressed importance of continued A1c control to minimize the terminal carman effects of diabetes. Bring accuchecks to office when instructed to do so. Check A1c about every 3-6 months. Take medication as prescribed. Get annual eye exam. Encouraged LUIS/Statin if able to tolerate. Encouraged weight control and encouraged diabetic diet and exercise. Much better control and tolerating lower dose of the Trulicity. Continue current plan. Recheck a1c at the end of Decebmer and f.u after the first of the year. Assessment & Plan (02/29/2020 10:23 PM CDT): Stressed importance of continued A1c control to minimize the half-way effects of diabetes. Bring accuchecks to office when instructed to do so. Check A1c about every 3-6 months. Take medication as prescribed. Get annual eye exam. Encouraged LUIS/Statin if able to tolerate. Encouraged weight control and encouraged diabetic diet and exercise. Excellent improved control of DM. She is having nausea with the Trulicity so will decrease dose to 0.75mg weekly and see if nausea improves. Zofran has also been helpful. Check CMP for lytes as K low normal. Recheck renal function for stabliity. Assessment & Plan (12/15/2019 7:45 PM CDT): Increase the Trulicity to 1.5/week. Start LUIS Start statin after next visit to continue to slowly add on. Refer to data analyst etl developer. [facility]. Assessment & Plan (11/16/2019 11:36 AM CDT): New Diagnosis Diabetes. Discussed with patient at length diabetes, pathogenesis, half-way sequela, end organ damage, diet/exercise/weight loss, and medication options for treatment. Reviewed A1c, normal values, goals of treatment and need to monitor about every 90 days until well regulated. Discussed importance of annual DM eye exams. Reviewed benefits of LUIS and Statin as a diabetic. Discussed how DM affects the kidney's and ways to monitor. Reviewed increased CV risk and importance of tight control. Reviewed foot care and need to wear shoes to check feet on a regular basis to avoid terminal carman problems. Offered referral to data analyst etl developer--she declines at this time. Discussed medication options. Reviewed risks, benefit, alternatives, side effects and proper use of available DM medicaitons. She has a lot of GI issues/diarrhea/constipation so she is concerned about metformin. No history of pancreatitis. Will start GLP Trulicity demonstarted in the office and pt injected herself without problems. #4pens samples provided. Will plan to increase to 1.5 dose at next visit. Assessment & Plan (07/20/2019 10:34 AM FINISHER POLISHER): Pre-diabetes is a precursor to Dm. Stressed importance of working on diet (decrease your simple sugars and one carbohydrate with each meal) and increase you exercise to achieve weight loss and this will help prevent you from progressing to diabetes. Assessment & Plan (02/18/2019 8:10 PM CDT): Pre-diabetes is a precursor to Dm. Stressed importance of working on diet (decrease your simple sugars and one carbohydrate with each meal) and increase you exercise to achieve weight loss and this will help prevent you from progressing to diabetes. Myalgia 03/04/2017 02/18/2024 Nocturia 03/04/2017 02/18/2024 Urge incontinence 03/04/2017 02/18/2024 Major depressive disorder, s mason episode, unspecified 11/07/2016 01/17/2022 Immunizations Immunization Administration Dates Next Due Influenza, Trivalent, IM (MDV) 04/01/2018 Influenza, Trivalent, Preser vative Free, Intramuscular 04/13/2024 Influenza, Unspecified 04/11/2023,2022(Deferred: Patient Refused),04/02/2022,03/20/2021, 020,03/31/2019 Portalarium (J&J) SARS-CoV-2 Vaccination 08/22/2020 Tdap 07/20/2019 Social History Tobacco Use Types Packs/Day Years Used Date Smoking Tobacco: Never Smokeless Tobacco: Never Tobacco Cessation:Counseling Given: Not Answered Alcohol Use Standard Drinks/Week Comments Never 0 (1 standard drink = 0.6 oz pur e alcohol) AUDIT-C Answer Date Recorded Q1: How often do you have a drink containing alc ohol? Monthly or less 01/04/2025 Q2: How many drinks containi ng alcohol do you have on a typical day when you are drinking? 1 or 2 01/04/2025 Q3: How often do you have si x or more drinks on one occasion? 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 Not on file Not on file Last Filed Vital Signs Vital Sign Reading Time Taken Comments Blood Pressure 126/72 01/04/2025 9:30 AM CDT Pulse 70 01/04/2025 9:30 AM CDT Temperature 36.4 C (97.6 F) 01/04/2025 9:30 AM CDT Respiratory Rate 16 07/23/2022 10:06 AM FINISHER POLISHER Oxygen Saturation 97% 01/04/2025 9:30 AM CDT Inhaled Oxygen Concentration - - Weight 97.1 kg (214 lb) 01/04/2025 9:30 AM CDT Height 158.8 cm (5' 2.5) 01/04/2025 9:30 AM CDT Body Mass Index 38.52 01/04/2025 9:30 AM CDT Plan of Treatment Not on file Procedures Procedure Name Priority Date/Time Associated Diagnosis Comments SCREENING MAMMOGRAM BILATERAL W SHYAM Schedule Routine, Read Routine (OP Routine) 12/14/2024 11:16 AM CDT Breast cancer screening by mammogram CRP (ACUTE PHASE) Routine 11/23/2024 10: 53 AM CDT Positive LORRAINE (antinuclear antibody) ERYTHROCYTE SEDIMENTATION RATE Routine 11/23/2024 10:53 AM CDT Positive LORRAINE (antinuclear antibody) CBC WITH AUTO DIFFERENTIAL Routine 11/23/2024 10:53 AM CDT Positive LORRAINE (antinuclear antibody) COMPREHENSIVE METABOLIC PANEL Routine 11/23/2024 10:53 AM CDT Positive LORRAINE (antinuclear antibody) MISCELLANEOUS LAB TEST Routine 11/23/2024 10:08 AM CDT Positive LORRAINE (antinuclear antibody) HEMOGLOBIN A1C Routine 07/30/2024 8:19 AM FINISHER POLISHER Type 2 diabetes mellitus without complication, without long-term current use of insulin (HCC) LIPID PANEL Routine 07/30/2024 8:19 AM FINISHER POLISHER Type 2 diabetes mellitus without complication, without long-term current use of insulin (HCC) ALBUMIN CREATININE RATIO, URINE Routine 07/30/2024 8:19 AM FINISHER POLISHER Type 2 diabetes mellitus without complication, without long-term current use of insulin (HCC) DIABETES EYE EXAM Routine 05/10/2024 8:48 AM FINISHER POLISHER COLONOSCOPY Routine 08/29/2015 from Last 3 Months or Most Recently Relevant to Health Maintenance Results * Screening Mammogram Bilateral W Shyam (12/14/2024 11:16 AM CDT) Anatomical Region Laterality Modality Breast Bilateral Mammography Impressions 12/14/2024 11:16 AM CDT There is no mammographic evidence of malignancy. A 1 year screening mammogram is recommended. Bi-Rads Category 1: Negative Ana MARC IMG MAMMO PROCEDURES Edite d Result - Final * CBC with auto differential (11/23/2024 10:53 AM CDT) WBC 6.4 3.8 - 10.8 Thousand/u L [facility] RBC, POC 4.64 3.80 - 5.10 Million/uL [facility] Hgb 14.1 11.7 - 15.5 g/dL [facility] Hct 43.3 35.0 - 45.0 % [facility] MCV 93.3 80.0 - 100.0 fL [facility] MCH 30.4 27.0 - 33.0 pg [facility] MCHC 32.6 32.0 - 36.0 g/dL [facility] Comment: For adults, a slight decrease in the calculated MCHC value (in the range of 30 to 32 g/dL) is most likely not clinically significant; however, it should be interpreted with caution in correlation with other red cell parameters and the patient's clinical condition. Rdw 14.0 11.0 - 15.0 % [facility] Platelets 269 140 - 400 Thousand/u L [facility] MPV 10.0 7.5 - 12.5 fL [facility] Neutrophils, abs 3,974 1,500 - 7,800 cells/uL [facility] Lymphocytes, abs 1,882 850 - 3,900 cells/uL [facility] Monocyte abs 422 200 - 950 cells/uL [facility] Eosinophils, abs 70 15 - 500 cells/uL [facility] Basophils, abs 51 0 - 200 cells/uL [facility] Neutrophils 62.1 % [facility] Lymphocyte pct 29.4 % [facility] Monocytes 6.6 % [facility] Eosinophils 1.1 % [facility] Basophils 0.8 % [facility] Blood 11/23/2024 10:5 3 AM CDT 11/23/2024 10:53 AM CDT Teresa MARC LAB BLOOD ORDERABLES Final Result Performing Organization Address City/[facility]/ZIP Co de Phone Number [email or web address] [address] [place] [address] * Erythrocyte sedimentation rate (11/23/2024 10:53 AM CDT) Pathologist [facility] Erythrocyte sedimentation rate 19 < OR = 30 mm/h [facility] Blood 11/23/2024 10:5 3 AM CDT 11/23/2024 10:53 AM CDT Teresa MARC LAB BLOOD ORDERABLES Final Result [facility] [address] [place] [address] * CRP (acute phase) (11/23/2024 10:53 AM CDT) C-RP 5.5 <8.0 mg/L [facility] Blood 11/23/2024 10:5 3 AM CDT 11/23/2024 10:53 AM CDT Teresa MARC LAB BLOOD ORDERABLES Final Result [facility] [address] [place] [address] * (ABNORMAL) Comprehensive metabolic panel (11/23/2024 10:53 AM CDT) Glucose 110(H) 65 - 99 mg/dL [facility] Comment: Fasting reference interval For someone without known diabetes, a glucose value between 100 and 125 mg/dL is consistent with prediabetes and should be confirmed with a follow-up test. BUN 24 7 - 25 mg/dL [facility] Creatinine 0.99 0.50 - 1.03 mg/dL [facility] eGFR 66 > OR = 60 mL/min/1.7 3m2 [facility] BUN/creat ratio SEE NOTE: 6 - 22 (calc) [facility] Comment: Not Reported: BUN and Creatinine are within reference range. Sodium 140 135 - 146 mmol/L [facility] Potassium, pl 4.3 3.5 - 5.3 mmol/L [facility] Chloride 99 98 - 110 mmol/L [facility] CO2 31 20 - 32 mmol/L [facility] Calcium 10.3 8.6 - 10.4 mg/dL [facility] Protein, sr 7.1 6.1 - 8.1 g/dL [facility] Albumin 4.7 3.6 - 5.1 g/dL [facility] GLOBULIN 2.4 1.9 - 3.7 g/dL (calc) [facility] Alb/glob ratio 2.0 1.0 - 2.5 (calc) [facility] Bilirubin, total 0.7 0.2 - 1.2 mg/dL [facility] Alk phos 80 37 - 153 U/L [facility] AST 13 10 - 35 U/L [facility] ALT (SGPT) 12 6 - 29 U/L [facility] Blood 11/23/2024 10:5 3 AM CDT 11/23/2024 10:53 AM CDT Teresa MARC LAB BLOOD ORDERABLES Final Result [facility] [address] [id number] * AVISE CTD - Miscellaneous Test (11/23/2024 10:08 AM CDT) Miscellaneous Teresa MARC LAB BLOOD ORDERABLES Final Result Performing Organization Address City/[facility]/ZIP Co de Phone Number EXTERNAL LAB * Albumin Creatinine Ratio, Urine (07/30/2024 8:19 AM FINISHER POLISHER) Creatinine, ur 157 20 - 275 mg/dL [facility] Microalbumin, ur 2.0 See Note: mg/dL [facility] Comment: Reference Range: Reference Range Not established Microalbumin/creat ratio 13 <30 mg/g creat [facility] Comment: The ADA defines abnormalities in albumin excretion as follows: Albuminuria Category Result (mg/g creatinine) Normal to Mildly increased <30 Moderately increased 30-299 Severely increased > OR = 300 The ADA recommends that at least two of three specimens collected within a 3-6 month period be abnormal before considering a patient to be within a diagnostic category. Urine 07/30/2024 8:19 AM FINISHER POLISHER 07/30/2024 8:23 AM FINISHER POLISHER Narrative [facility] - 07/31/2024 7:53 AM FINISHER POLISHER FASTING:YES FASTING: YES Ana MARC LAB URINE ORDERABLES Final Result [email or web address] [address] [place] [id number] * Hemoglobin A1c (07/30/2024 8:19 AM FINISHER POLISHER) Hgb A1C 5.4 <5.7 % of total Hgb [facility] Comment: For the purpose of screening for the presence of diabetes: <5.7% Consistent with the absence of diabetes 5.7-6.4% Consistent with increased risk for diabetes (prediabetes) > or =6.5% Consistent with diabetes This assay result is consistent with a decreased risk of diabetes. Currently, no consensus exists regarding use of hemoglobin A1c for diagnosis of diabetes in children. According to [place] [employer] (ADA) guidelines, hemoglobin A1c <7.0% represents optimal control in non- diabetic patients. Different metrics may apply to specific patient populations. Standards of Medical Care in Diabetes(ADA). Blood 07/30/2024 8:19 AM FINISHER POLISHER 07/30/2024 8:23 AM FINISHER POLISHER Narrative [facility] - 07/31/2024 7:53 AM FINISHER POLISHER FASTING:YES FASTING: YES Ana MARC LAB BLOOD ORDERABLES Final Result Performing Organization Address City/[facility] Co de Phone Number [facility] [address] [place] [address] * Lipid panel (07/30/2024 8:19 AM FINISHER POLISHER) Cholesterol 166 <200 mg/dL [facility] HDL 73 > OR = 50 mg/dL [facility] Triglycerides 84 <150 mg/dL [facility] LDL 77 mg/dL (calc) [facility] Comment: Reference range: <100 Desirable range <100 mg/dL for primary prevention; <70 mg/dL for patients with CHD or diabetic patients with > or = 2 CHD risk factors. LDL-C is now calculated using the Dixon-Jacome calculation, which is a validated novel method providing better accuracy than the Friedewald equation in the estimation of LDL-C. Dixon SS et al. CHAYA. 2013;310(19): 6001-6421 (http://education.Xierkang/faq/DJY576) Chol/HDL ratio 2.3 <5.0 (calc) InsuritasJeff Persaud Non-HDL, (LDL+VLDL) 93 <130 mg/dL (calc) [facility] Comment: For patients with diabetes plus 1 major ASCVD risk factor, treating to a non-HDL-C goal of <100 mg/dL (LDL-C of <70 mg/dL) is considered a therapeutic option. Blood 07/30/2024 8:19 AM FINISHER POLISHER 07/30/2024 8:23 AM FINISHER POLISHER Narrative [facility] - 07/31/2024 7:53 AM FINISHER POLISHER FASTING:YES FASTING: YES Ana MARC LAB BLOOD ORDERABLES Final Result [facility] [address] [place] [address] * DIABETES EYE EXAM (05/10/2024 8:48 AM FINISHER POLISHER) SCRIBED DIABETIC DILATED EYE EXAM Normal Historical Provider HEALTH MAINTENANCE Edited Result - Final * COLONOSCOPY (08/29/2015) Colonoscopy Normal Comment:Dr. Boris heaton Historical Provider HEALTH MAINTENANCE Final Result from Last 3 Months or Most Recently Relevant to Health Maintenance Insurance [facility] HMO/PPO Address: [address] [address] [place] [address] [id number] [facility] CHOICE [facility] H[facility]/PPO Address: [address] [address] [place] [address] [id number] [facility] CHOICE [facility] H[facility]/PPO Address: [address] [address] [place] [address] [facility] CHOICE [facility] H[facility]/PPO Address: [place] [address] Care Teams [employer] [place] [employer]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
--- OUTSIDE RECORDS SUMMARY | 2025-01-18 12:38 | XMS_ITS | Clinical Summary ---
Author Organization [facility] [address] [facility] Address [address] [place] [address] Care Team Providers Care Associate Art Director Name Role Phone Ana Perry Primary Care Provider [phone] Allergies No known active allergies Medications omeprazole [...] has prompted an autoimmune work- up by [facility]. Pain spots may seem to coincide [...] 08/11/2024 Assessment & Plan (08/11/2024 9:31 PM PRESS MACHINE OPERATOR): Mammogram order provided BMI 38.0-38.9,adult 04/13/2024 Assessment & Plan (01/04/2025 9:35 AM CDT): Discussed the patient's BMI. The BMI is above average. BMI management plan is completed. BMI Follow-up includes: nutrition counseling, exercise counseling and education provided. Assessment & Plan (08/03/2024 8:24 AM PRESS MACHINE OPERATOR): Discussed the patient's BMI. The BMI is [...] Assessment & Plan (09/28/2024 1:30 PM CDT): [facility] is following closely with regular [facility] panels to determine autoimmune etiology of chronic pain. - Keep your appointments with [facility] Assessment & Plan (08/11/2024 9:30 PM PRESS MACHINE OPERATOR): Patient has elevated LORRAINE titer. Continue to follow with [facility] as she has quite a high titer but still not showing other antibodies. Has a follow-up scheduled in 6 months Assessment & Plan (05/21/2024 2:39 PM PRESS MACHINE OPERATOR): 58-year-old female with PMHx of depression, anxiety, [...] needed. Assessment & Plan (05/07/2024 2:50 PM PRESS MACHINE OPERATOR): 58-year-old female with PMHx of depression, anxiety, [...] Positive LORRAINE with elevated titers. Referral [facility] Rhe[facility]ology placed. Vitamin D deficiency 04/13/2024 Assessment & Plan (01/13/2025 12:29 AM CDT): supplement Assessment & Plan (08/11/2024 9:31 PM PRESS MACHINE OPERATOR): Supplement Assessment & Plan (05/21/2024 2:39 PM PRESS MACHINE OPERATOR): Consider repeating levels 12 weeks after starting [...] had Hyst D&C with myomectomy. Pathology with TEXTILE ENGRAVER confirmed benign fibroid/endometrial lining Assessment & Plan [...] otc Assessment & Plan (08/11/2024 9:30 PM PRESS MACHINE OPERATOR): Supplement Assessment & Plan (04/13/2024 11:28 AM CDT): Supplement with B12 1,000 mcg daily. Assessment & Plan (02/18/2024 11:31 PM CDT): Supplement Assessment & Plan (08/07/2023 9:54 PM PRESS MACHINE OPERATOR): Vitamin B12 is low. Start B12 1,000mcg [...] consumption Assessment & Plan (08/11/2024 9:30 PM PRESS MACHINE OPERATOR): Bp is stable/in acceptable range for any [...] triamterene/hydrochlorothiazide Assessment & Plan (08/07/2023 9:53 PM PRESS MACHINE OPERATOR): Bp is stable/in acceptable range for any co-morbidities. Encouraged to limit sodium intake and exercise for weight control. Stressed importance of continued A1c control to minimize the care home effects of diabetes. Bring accuchecks to office [...] provided. Assessment & Plan (08/11/2024 9:31 PM PRESS MACHINE OPERATOR): Discussed the patient's BMI. The BMI is [...] 35.00-39.99. Assessment & Plan (08/07/2023 9:53 PM PRESS MACHINE OPERATOR): Discussed the patient's BMI. The BMI is above average. BMI management plan is completed. BMI Follow-up includes: nutrition counseling, exercise counseling and education provided. Patient has an obesity-related condition (not limited to: hypertension, obstructive sleep apnea, osteoarthritis, hyperlipidemia, diabetes, etc.). Therefore, morbid obesity may be documented for patients with a BMI between 35.00-39.99. Assessment & Plan (06/01/2023 11:06 PM PRESS MACHINE OPERATOR): Discussed the patient's BMI. The BMI is [...] re-evaluate Assessment & Plan (07/11/2021 11:18 AM PRESS MACHINE OPERATOR): Probably multifactorial. Check labs and followup to re-evaluate Gastroesophageal reflux disease without esophagi tis 10/11/2020 Assessment & Plan (02/18/2024 11:30 PM CDT): Continue PPI p.r.n.. Encouraged to try to decrease as able to tolerate based on symptoms Assessment & Plan (01/08/2024 4:14 PM CDT): Symptoms are stable with omeprazole p.r.n. Assessment & Plan (08/01/2022 7:10 PM PRESS MACHINE OPERATOR): Continue PPI Assessment & Plan (07/11/2021 11:18 AM PRESS MACHINE OPERATOR): Continue PPI Assessment & Plan (02/08/2021 7:38 PM CDT): Encouraged to call Dr. Prince office for further instructions/referral. I will also request his notes -- Will start referral to [facility]. Continue omeprazole. Assessment & Plan (10/11/2020 [...] 10 Assessment & Plan (08/11/2024 9:30 PM PRESS MACHINE OPERATOR): Encouraged patient to follow low fat/low chol [...] of continued A1c control to minimize the superintendent [employer] effects of diabetes. Bring accuchecks to office [...] intake Assessment & Plan (08/07/2023 9:53 PM PRESS MACHINE OPERATOR): Encouraged patient to follow low fat/low chol [...] 10 Assessment & Plan (08/01/2022 7:10 PM PRESS MACHINE OPERATOR): Encouraged patient to follow low fat/low chol [...] Crestor Assessment & Plan (07/11/2021 11:18 AM PRESS MACHINE OPERATOR): Encouraged patient to follow fat/low chol diet [...] of continued A1c control to minimize the superintendent marine [employer] effects of diabetes. Bring accuchecks to office [...] intake Assessment & Plan (08/11/2024 9:30 PM PRESS MACHINE OPERATOR): Stressed importance of continued A1c control to minimize the superintendent marine [employer] effects of diabetes. Bring accuchecks to office [...] of continued A1c control to minimize the care home effects of diabetes. Bring accuchecks to office [...] of continued A1c control to minimize the care home effects of diabetes. Bring accuchecks to office [...] stability Assessment & Plan (08/07/2023 9:53 PM PRESS MACHINE OPERATOR): Stressed importance of continued A1c control to minimize the superintendent [employer] effects of diabetes. Bring accuchecks to office [...] of continued A1c control to minimize the care home effects of diabetes. Bring accuchecks to office [...] of continued A1c control to minimize the superintendent marine [employer] effects of diabetes. Bring accuchecks to office [...] loss Assessment & Plan (08/01/2022 7:10 PM PRESS MACHINE OPERATOR): Stressed importance of continued A1c control to minimize the care home effects of diabetes. Bring accuchecks to office when instructed to do so. Check A1c about every 3-6 months. Take medication as prescribed. Get annual eye exam. Encouraged LUIS/Statin if able to tolerate. Encouraged weight control and encouraged diabetic diet and exercise. Continue Trulicity 1.5 weekly Assessment & Plan (01/17/2022 8:29 PM CDT): Stressed importance of continued A1c control to minimize the care home effects of diabetes. Bring accuchecks to office when instructed to do so. Check A1c about every 3-6 months. Take medication as prescribed. Get annual eye exam. Encouraged LUIS/Statin if able to tolerate. Encouraged weight control and encouraged diabetic diet and exercise. Continue Trulicity Assessment & Plan (07/11/2021 11:18 AM PRESS MACHINE OPERATOR): Stressed importance of continued A1c control to minimize the superintendent marine [employer] effects of diabetes. Bring accuchecks to office when instructed to do so. Check A1c about every 3-6 months. Take medication as prescribed. Get annual eye exam. Encouraged LUIS/Statin if able to tolerate. Encouraged weight control and encouraged diabetic diet and exercise. Continue Trulicity as well controlled Assessment & Plan (02/08/2021 7:31 PM CDT): Stressed importance of continued A1c control to minimize the care home effects of diabetes. Bring accuchecks to office when instructed to do so. Check A1c about every 3-6 months. Take medication as prescribed. Get annual eye exam. Encouraged LUIS/Statin if able to tolerate. Encouraged weight control and encouraged diabetic diet and exercise. Continue Trulicity Assessment & Plan (10/11/2020 1:50 PM CDT): Stressed importance of continued A1c control to minimize the care home effects of diabetes. Bring accuchecks to office [...] GLP Assessment & Plan (07/06/2020 6:36 PM PRESS MACHINE OPERATOR): Stressed importance of continued A1c control to minimize the care home effects of diabetes. Bring accuchecks to office [...] 10/11/2018 Assessment & Plan (07/06/2020 6:32 PM PRESS MACHINE OPERATOR): Increase fiber, exercise, water. Add stool softner.bid If sxs persist, may use Miralax or prn linzess Assessment & Plan (02/29/2020 10:21 PM CDT): Continue Linzess, water and fiber. Assessment & Plan (07/20/2019 10:34 AM PRESS MACHINE OPERATOR): Continue linzess prn Assessment & Plan (02/18/2019 8:10 PM CDT): Stable with Lizess IC (interstitial cystitis) 10/11/2018 Assessment & Plan [...] prescribed. Assessment & Plan (08/11/2024 9:29 PM PRESS MACHINE OPERATOR): Depression has been well controlled with the [...] continue. Assessment & Plan (08/07/2023 9:53 PM PRESS MACHINE OPERATOR): Stable with Cymbalta 60 Assessment & Plan (03/27/2023 8:23 PM CDT): Depression is stable with Cymbalta 60 Assessment & Plan (02/12/2023 11:04 PM CDT): Stable with Cymbalta 60 Assessment & Plan (08/01/2022 7:10 PM PRESS MACHINE OPERATOR): Stable with Cymbalta 60 Assessment & Plan (01/17/2022 8:28 PM CDT): Continue Cymbalta Assessment & Plan (07/11/2021 11:16 AM PRESS MACHINE OPERATOR): Continue Cymbalta. Refills sent to pharmacy. Assessment & Plan (02/08/2021 7:42 PM CDT): Continue cymbalta Assessment & Plan (10/11/2020 1:51 PM CDT): Stable with Cymbalta. Assessment & Plan (07/06/2020 6:34 PM PRESS MACHINE OPERATOR): Continue cymbalta Assessment & Plan (02/29/2020 10:23 PM CDT): Stable with cymbalta. Assessment & Plan (12/15/2019 7:45 PM CDT): Continue cymbalta Assessment & Plan (07/20/2019 10:34 AM PRESS MACHINE OPERATOR): Stable with the Wellbutrin and Cymbalta Assessment [...] is following with Dr[facility] Oni Monique [facility] and is planning a vitrectomy and cataract extraction on January 09. Acute non-recurrent pansinusitis 06/01/2023 08/07/2023 Assessment & Plan (06/01/2023 11:04 PM PRESS MACHINE OPERATOR): Start antibiotic, antihistamine (Claritin OR Zyrtec), Mucinex 12hour and Steroid nasal spray (Flonase). Push fluids. Rest. Supportive care. If sxs worsen or don\'t improve, pt is to followup in the office. Acute bacterial conjunctivitis of left eye 06/01/2023 08/07/2023 Assessment & Plan (06/01/2023 11:06 PM PRESS MACHINE OPERATOR): Suspect bacterial conjunctivitis. Cipro eye drops as [...] provided. Assessment & Plan (08/07/2023 9:53 PM PRESS MACHINE OPERATOR): Discussed the patient's BMI. The BMI is above average. BMI management plan is completed. BMI Follow-up includes: nutrition counseling, exercise counseling and education provided. Assessment & Plan (06/01/2023 11:07 PM PRESS MACHINE OPERATOR): Discussed the patient's BMI. The BMI is above average. BMI management plan is completed. BMI Follow-up includes: nutrition counseling, exercise counseling and education provided. Assessment & Plan (03/27/2023 8:24 PM CDT): Discussed the patient's BMI. The BMI is above average. BMI management plan is completed. BMI Follow-up includes: nutrition counseling, exercise counseling and education provided. Annual physical exam 02/12/2023 Assessment & Plan (02/12/2023 11:05 PM CDT): [...] and dry. Dry off with a hair belt conveyor drier uncle setting and then apply Lotrisone [...] 03/27/2023 Assessment & Plan (05/25/2022 12:05 PM PRESS MACHINE OPERATOR): Patient has had left foot pain for the last couple of months. It appears she has either a corn or a plantar wart on the lateral part of her left foot under the 5th metatarsal. Recommend to Podiatry as it is deep and very painful. Provided referral information for Dr. Cuevas in [place]. Encouraged her to just call on her own to set the appointment as she does not need a referral. Also discussed that she could get some mole skin and cut a hole to offload the weight on that direct area until she is able to get in with the career development manager. Provided an example off the table paper and she voiced understanding. Morbid obesity 01/17/2022 09/03/2022 Assessment & Plan (08/01/2022 7:11 PM PRESS MACHINE OPERATOR): Discussed the patient's BMI. The BMI is above average. BMI management plan is completed. BMI Follow-up includes: nutrition counseling, exercise counseling and education provided. Patient has an obesity-related condition (not limited to: hypertension, obstructive sleep apnea, osteoarthritis, hyperlipidemia, diabetes, etc.). Therefore, morbid obesity may be documented for patients with a BMI between 35.00-39.99. Assessment & Plan (05/25/2022 12:03 PM PRESS MACHINE OPERATOR): Discussed the patient's BMI. The BMI is [...] (BMI 30-39.9) 01/08/20222021 BMI 38.0-38.9,adult 01/08/2022 09/04/19 23 Assessment & Plan (08/01/2022 7:11 PM PRESS MACHINE OPERATOR): Discussed the patient's BMI. The BMI is above average. BMI management plan is completed. BMI Follow-up includes: nutrition counseling, exercise counseling and education provided. Assessment & Plan (05/25/2022 12:03 PM PRESS MACHINE OPERATOR): Discussed the patient's BMI. The BMI is [...] 08/01/2022 Assessment & Plan (07/08/2022 3:22 PM PRESS MACHINE OPERATOR): -Doing well with use of macrobid post intercourse. No UTI's since starting this regimen. -She had renal US done at [facility] which was normal. PLAN: -Continue to [...] urology referral. Eye pain, bilateral 08/29/2021 02/18/20 Assessment & Plan (08/29/2021 9:46 PM PRESS MACHINE OPERATOR): Will start with eye drops. Reviewed with patient that usually conjunctivitis doesn't have PAIN so recommend calling Ophthamology for appointment. She is in agreement. If sxs worsen, pain increases or visual changes, she is to go to the ER> Obesity (BMI 30-39.9) 08/18/20212021 Assessment & Plan (08/18/2021 9:06 AM PRESS MACHINE OPERATOR): Obesity is unchanged. Discussed the patient's BMI. The BMI is above average. BMI management plan is completed. BMI Follow-up includes: nutrition counseling, exercise counseling and education provided. BMI 39.0-39.9,adult 08/18/2021 10/13/19 Assessment & Plan (08/18/2021 9:06 AM PRESS MACHINE OPERATOR): Obesity is unchanged. Discussed the patient's BMI. The BMI is above average. BMI management plan is completed. BMI Follow-up includes: nutrition counseling, exercise counseling and education provided. Obesity (BMI 30-39.9) 07/10/20212021 Assessment & Plan (07/10/2021 10:02 AM PRESS MACHINE OPERATOR): Obesity is unchanged. Discussed the patient's BMI. The BMI is above average. BMI management plan is completed. BMI Follow-up includes: nutrition counseling, exercise counseling and education provided. BMI 38.0-38.9,adult 07/10/2021 08/19/19 Assessment & Plan (07/10/2021 10:02 AM PRESS MACHINE OPERATOR): Obesity is unchanged. Discussed the patient's BMI. [...] screenings. Assessment & Plan (07/11/2021 11:17 AM PRESS MACHINE OPERATOR): Encouraged healthy lifestyle, good nutrition and exercise. Encouraged Calcium and Vitamin D and weight bearing exercise for bone health. Reviewed immunizations Reviewed age appropirate screenings. Assessment & Plan (07/06/2020 6:37 PM PRESS MACHINE OPERATOR): Encouraged healthy lifestyle, good nutrition and exercise. Encouraged Calcium and Vitamin D and weight bearing exercise for bone health. Reviewed immunizations Reviewed age appropirate screenings. BMI 36.0-36.9,adult 07/04/2020 01/31/20 21 Assessment & Plan (10/10/2020 9:07 AM CDT): Obesity is unchanged. Discussed the patient's BMI. The BMI is above average. BMI management plan is completed. BMI Follow-up includes: nutrition counseling, exercise counseling and education provided. Assessment & Plan (07/04/2020 10:18 AM PRESS MACHINE OPERATOR): Obesity is unchanged. Discussed the patient's BMI. [...] provided. Assessment & Plan (07/04/2020 10:18 AM PRESS MACHINE OPERATOR): Obesity is unchanged. Discussed the patient's BMI. [...] 07/20/2019 Assessment & Plan (07/20/2019 10:34 AM PRESS MACHINE OPERATOR): Updated Tdap in office today Tremor 07/20/2019 02/18/2024 Assessment & Plan (12/15/2019 7:47 PM CDT): Has improved since accuchecks have improved with dx of DM. Will monitor and make referral if needed after next visit to reassess. Assessment & Plan (07/20/2019 10:35 AM PRESS MACHINE OPERATOR): This is a significant, separately identifiable problem that was evaluated and managed on the same day as the wellness exam Tremor has been persistent. Discussed may be benign but she is young and no family history so will send to Neuro for further evaluation. She is in agreement. Annual physical exam 07/20/2019 020 Assessment & Plan (07/20/2019 10:34 AM PRESS MACHINE OPERATOR): Encouraged healthy lifestyle, good nutrition and exercise. Encouraged Calcium and Vitamin D and weight bearing exercise for bone health. Reviewed immunizations Reviewed age appropirate screenings. Lipid screening 07/20/2019 11/15/2019 Assessment & Plan (07/20/2019 10:35 AM PRESS MACHINE OPERATOR): Check labs Other fatigue 07/20/2019 11/15/2019 Assessment & Plan (07/20/2019 10:35 AM PRESS MACHINE OPERATOR): Probably multifactorial. Check labs and followup to re-evaluate Breast cancer screening by mammogram 05/13/2019 02/18/2024 Assessment & Plan (01/17/2022 8:28 PM CDT): Mammogram order provided Assessment & Plan (07/11/2021 11:17 AM PRESS MACHINE OPERATOR): Mammogram order was received from her market research interviewer. Will await results. Assessment & Plan (07/06/2020 6:35 PM PRESS MACHINE OPERATOR): Mamm order provided Assessment & Plan (05/13/2019 2:08 PM PRESS MACHINE OPERATOR): Mammogram order provided Acute pain of left shoulder 01/06/2019 02/29/2020 Overview (01/06/2019): No history of injury. Start NSAIDs. Do home exercises. If sxs persist, will consider PT. She declines at this time. Assessment & Plan (07/20/2019 10:32 AM PRESS MACHINE OPERATOR): Resolved without further treatment Assessment & Plan (05/13/2019 2:08 PM PRESS MACHINE OPERATOR): Persistent sxs. Refer to Ortho BMI 45.0-49.9, adult 01/05/2019 020 Assessment & Plan (07/20/2019 10:36 AM PRESS MACHINE OPERATOR): Obesity is improving. Discussed the patient's BMI. [...] weight loss program as went to the [facility] Bariatric information mtg and was told [...] provided. Assessment & Plan (07/20/2019 10:36 AM PRESS MACHINE OPERATOR): Obesity is improving. Discussed the patient's BMI. [...] today. Assessment & Plan (07/20/2019 10:33 AM PRESS MACHINE OPERATOR): Bp is stable/in acceptable range for any [...] of continued A1c control to minimize the superintendent marine oil terminal effects of diabetes. Bring accuchecks to office [...] of continued A1c control to minimize the care home effects of diabetes. Bring accuchecks to office [...] continue to slowly add on. Refer to track repair person. [facility]. Assessment & Plan (11/16/2019 11:36 AM CDT): New Diagnosis Diabetes. Discussed with patient at length diabetes, pathogenesis, superintendent marine [employer] sequela, end organ damage, diet/exercise/weight loss, and [...] feet on a regular basis to avoid superintendent marine oil terminal problems. Offered referral to track repair person--she declines at this time. Discussed medication options. [...] visit. Assessment & Plan (07/20/2019 10:34 AM PRESS MACHINE OPERATOR): Pre-diabetes is a precursor to Dm. Stressed [...] disorder, s mason episode, unspecified 11/07/2016 01/17/2022 Encounters Date Type Department Care Team Description 01/04/2025 9:30 AM CDT Office Visit [facility] [address] [address] Swinigan, Ana R., PA Moderate episode of recurrent major depressive disorder (HCC) (Primary Dx); Type 2 diabetes mellitus without complication, without long-term current use of insulin (HCC); Type 2 diabetes mellitus with hyperlipidemia (HCC); Fibromyalgia; Vitamin D deficiency; Positive LORRAINE (antinuclear antibody); Low serum vitamin B12; Hypertension associated with diabetes (HCC); Morbid obesity (HCC); BMI 38.0-38.9,adult 12/17/2024 Results Follow-Up [facility] [address] [place] [address] Ana Perry PA Screening Mammogram Bilateral W Shyam 11/26/2024 Results Follow-Up [facility] [address] [place] [phone] Teresa Amato PA Comprehensive metabolic panel, CBC with auto differential, Erythrocyte sedimentation rate, Additional followed-up results: 2 11/23/2024 10:15 AM CDT Office Visit [facility] [address] [place] [phone] Teresa Amato PA Positive LORRAINE (antinuclear antibody) (Primary Dx) from Last 3 Months Immunizations Immunization Administration Dates Next Due Influenza, Trivalent, IM (MDV) 04/01/2018 Influenza, Trivalent, Preser vative Free, Intramuscular 04/13/2024 Influenza, Unspecified 04/11/2023,2022(Deferred: Patient Refused),04/02/2022,03/20/2021, 020,03/31/2019 [email or web address] (J&J) SARS-CoV-2 Vaccination 08/22/2020 Tdap 07/20/2019 Surgical History Surgery Date Site/Laterality Comments CHOLECYSTECTOMY SECTION x2: 03/1989, 02/1991 Medical History Medical History Date Comments Hypertension Family History Medical History Relation Name Comments Diabetes Father Terry Peter Hypertension Father Terry Peter Relation Name Status Comments Father Terry Peter Mother Social History Tobacco Use Types Packs/Day [...] on file Legal Sex Female 6:47 PM PRESS MACHINE OPERATOR Gender Identity Not on file Sexual Orientation Not on file 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 Not on file Not on file Not on file Obstetrics History Last Filed Vital Signs Vital Sign Reading Time Taken Comments Blood Pressure 126/72 01/04/2025 9:30 AM CDT Pulse 70 01/04/2025 9:30 AM CDT Temperature 36.4 C (97.6 F) 01/04/2025 9:30 AM CDT Respiratory Rate 16 07/23/2022 10:06 AM PRESS MACHINE OPERATOR Oxygen Saturation 97% 01/04/2025 9:30 AM CDT Inhaled Oxygen Concentration - - Weight 97.1 kg (214 lb) 01/04/2025 9:30 AM CDT Height 158.8 cm (5' 2.5) 01/04/2025 9:30 AM CDT Body Mass Index 38.52 01/04/2025 9:30 AM CDT Plan of Treatment Health Maintenance Due Date Last Done Comments Cervical Cancer Screening 1965 Hepatitis C Screening 1965 Hepatitis B Screening 1983 Pneumococcal vaccine <65 (1 of 2 - PCV) 1984 Zoster Vaccine (1 of 2) 2015 Foot Exam 12/10/2020 12/11/2019 Covid-19 Vaccine (2 - 2023-2 5 season) 2024 08/22/2020 Hemoglobin A1C 01/27/2025 07/30/2024, 09/0 11/2023, 12/27/2023, Additional history exists Regular Well Visit/Exam 18-64 02/16/2025, 02/04/2023, 01/08/2022, Additional history exists Influenza Vaccine (#1) 2025 , 04/11/2023, 04/02/2022, Additional history exists Dilated Eye Exam 05/10/2025 05/10/2024, , 03/06/2021, Additional history exists Albumin Creatinine Ratio, Urine 07/30/2025 07/30/2024, 08/01/2023, 09/09/2022 Lipid Panel 07/30/2025 07/30/2024, 0911/2023, 12/27/2023, Additional history exists Colon Cancer Screening-Colonoscopy 08/28/2025 08/29/2015 eGFR 11/23/2025 11/23/2024, 07/21, 02/24/2024, Additional history exists Breast Cancer Screening-Mammogram 12/14/2025 12/14/2024, 11/25/2023, 09/03/2022, Additional history exists Depression Screening 01/04/2026 01/04/2025, 09/28/2024, 08/03/2024, Additional history exists DTaP/Tdap/Td Vaccine (2 - Td or Tdap) 07/20/2029 07/20/2019 Colon Cancer Screening-CT Colonography Discontinued 08/29/2015 Colon Cancer Screening-DNA Stool Discontinued 08/29/19 16 Colon Cancer Screening-FIT Discontinued 08/29/2015 Colon Cancer Screening-Sigmoidoscopy Discontinued 08/29/2015 Procedures Procedure Name Priority Date/Time Associated Diagnosis [...] antibody) HEMOGLOBIN A1C Routine 07/30/2024 8:19 AM PRESS MACHINE OPERATOR Type 2 diabetes mellitus without complication, without long-term current use of insulin (HCC) LIPID PANEL Routine 07/30/2024 8:19 AM PRESS MACHINE OPERATOR Type 2 diabetes mellitus without complication, without long-term current use of insulin (HCC) ALBUMIN CREATININE RATIO, URINE Routine 07/30/2024 8:19 AM PRESS MACHINE OPERATOR Type 2 diabetes mellitus without complication, without long-term current use of insulin (HCC) DIABETES EYE EXAM Routine 05/10/2024 8:48 AM PRESS MACHINE OPERATOR COLONOSCOPY Routine 08/29/2015 from Last 3 Months [...] LAB BLOOD ORDERABLES Final Result [facility] [address] [facility] [place] [address] * Erythrocyte sedimentation rate (11/23/2024 10:53 AM CDT) Erythrocyte sedimentation rate 19 < OR = 30 mm/h [facility] Blood 11/23/2024 10:5 3 AM CDT 11/23/2024 10:53 AM CDT Teresa MARC LAB BLOOD ORDERABLES Final Result Performing Organization Address City/[facility]/ZIP Co de Phone Number [facility] [address] [facility] [place] [address] * CRP (acute phase) (11/23/2024 10:53 AM CDT) Pathologist [facility] C-RP 5.5 <8.0 mg/L [facility] Blood 11/23/2024 10:5 3 AM CDT 11/23/2024 10:53 AM CDT Teresa MARC LAB BLOOD ORDERABLES Final Result Performing Organization Address [facility] Co de Phone Number [facility] [address] [place] [address] * (ABNORMAL) Comprehensive metabolic panel (11/23/2024 10:53 AM CDT) [facility] Glucose 110(H) 65 - 99 mg/dL [facility] [...] BLOOD ORDERABLES Final Result Performing Organization Address City/[facility]/ZIP Co de Phone Number [facility] [address] [place] [address] * AVISE CTD - Miscellaneous Test (11/23/2024 10:08 AM CDT) Miscellaneous Teresa MARC LAB BLOOD ORDERABLES Final Result EXTERNAL LAB * Albumin Creatinine Ratio, Urine (07/30/2024 8:19 AM PRESS MACHINE OPERATOR) Creatinine, ur 157 20 - 275 mg/dL [...] a diagnostic category. Urine 07/30/2024 8:19 AM PRESS MACHINE OPERATOR 07/30/2024 8:23 AM PRESS MACHINE OPERATOR Narrative [facility] - 07/31/2024 7:53 AM PRESS MACHINE OPERATOR FASTING:YES FASTING: YES Ana MARC LAB URINE ORDERABLES Final Result [facility] [address] [place] [address] * Hemoglobin A1c (07/30/2024 8:19 AM PRESS MACHINE OPERATOR) Hgb A1C 5.4 <5.7 % of total Hgb [facility] Comment: For the purpose of screening for the presence of diabetes: <5.7% Consistent with the absence of diabetes 5.7-6.4% Consistent with increased risk for diabetes (prediabetes) > or =6.5% Consistent with diabetes This assay result is consistent with a decreased risk of diabetes. Currently, no consensus exists regarding use of hemoglobin A1c for diagnosis of diabetes in children. According to [place] Diabetes Association (ADA) guidelines, hemoglobin A1c <7.0% represents optimal control in non- diabetic patients. Different metrics may apply to specific patient populations. Standards of Medical Care in Diabetes(ADA). Blood 07/30/2024 8:19 AM PRESS MACHINE OPERATOR 07/30/2024 8:23 AM PRESS MACHINE OPERATOR Narrative [facility] - 07/31/2024 7:53 AM PRESS MACHINE OPERATOR FASTING:YES FASTING: YES Ana MARC LAB BLOOD ORDERABLES Final Result [facility] [address] [place] [address] * Lipid panel (07/30/2024 8:19 AM PRESS MACHINE OPERATOR) Cholesterol 166 <200 mg/dL [facility] HDL 73 > OR = 50 mg/dL [facility] Triglycerides 84 <150 mg/dL [facility] LDL 77 mg/dL (calc) [facility] Comment: Reference range: <100 Desirable range <100 mg/dL for primary prevention; <70 mg/dL for patients with CHD or diabetic patients with > or = 2 CHD risk factors. LDL-C is now calculated using the Adalid calculation, which is a validated novel method providing better accuracy than the Friedewald equation in the estimation of LDL-C. Dixon PAGAN et al. CHAYA. 2013;310(19): 4842-1737 (http://education.[employer]/faq/QWW061) Chol/HDL ratio 2.3 <5.0 (calc) [facility] Non-HDL, (LDL+VLDL) 93 <130 mg/dL (calc) [facility] Comment: For patients with diabetes plus 1 major ASCVD risk factor, treating to a non-HDL-C goal of <100 mg/dL (LDL-C of <70 mg/dL) is considered a therapeutic option. Blood 07/30/2024 8:19 AM PRESS MACHINE OPERATOR 07/30/2024 8:23 AM PRESS MACHINE OPERATOR Narrative [facility] - 07/31/2024 7:53 AM PRESS MACHINE OPERATOR FASTING:YES FASTING: YES Ana MARC LAB BLOOD ORDERABLES Final Result [facility] [address] [place] [address] * DIABETES EYE EXAM (05/10/2024 8:48 AM PRESS MACHINE OPERATOR) SCRIBED DIABETIC DILATED EYE EXAM Normal Historical Provider HEALTH MAINTENANCE Edited Result - Final * COLONOSCOPY (08/29/2015) Colonoscopy Normal Comment:Dr. Boris heaton Historical Provider HEALTH MAINTENANCE Final Result from Last 3 Months or Most Recently Relevant to Health Maintenance Insurance [facility] PLUS [facility] PLUS [facility]US [facility] PLUS Care Teams Associate Art Director Relationship Specialty Start Date End Date Ana Perry PA [address] [place], [place] [id number] PCP - General Internal Medicine 10/11/18
--- OUTSIDE RECORDS SUMMARY | 2025-01-18 12:38 | XMS_ITS | Clinical Summary ---
Author Organization [facility] Address [address] [place] [address] Care Team Providers Care Stamping Die Maker Name Role Phone Unavailable Primary Care Provider Unavailabl e Social History Tobacco Use Types Packs/Day Years Used Date Smoking Tobacco: Never Assessed Comments Unknown Sex and Gender Information Value Date Recorded Sex Assigned at Not on file Legal Sex Female 8:12 PM CDT Gender Identity Not on file Sexual Orientation Not on file Last Filed Vital Signs Vital Sign Reading Time Taken Comments Blood Pressure 124/78 06/27/2015 9:00 AM PLANT MAINTENANCE SUPERVISOR Pulse 72 05/10/2014 9:46 AM PLANT MAINTENANCE SUPERVISOR Temperature - - Respiratory Rate - - Oxygen Saturation - - Inhaled Oxygen Concentration - - Weight 104.3 kg (230 lb) 06/27/2015 9:00 AM PLANT MAINTENANCE SUPERVISOR Height 161.3 cm (5' 3.5) 06/27/2015 9:00 AM PLANT MAINTENANCE SUPERVISOR Body Mass Index 40.1 06/27/2015 9:00 AM PLANT MAINTENANCE SUPERVISOR Plan of Treatment Health Maintenance Due Date Last Done Comments Cervical Cancer Screening Pa p Smear (Age 30 to 64) Every 3 Years 1965 Colorectal Cancer Screening Colonoscopy (10 Years) 1965 Annual Physical 1968 Hepatitis C 1983 DTaP, Tdap and Td Vaccines ( 1 - Tdap) 1984 Cervical Cancer Screening Pa p with HPV Testing (Age 30 to 64) Every 5 Years 1995 Cervical Cancer Screening with HPV 1995 Mammogram Screening 2005 Pneumococcal Vaccine: 50+ Ye ars (1 of 1 - PCV) 2015 Zoster Vaccines (1 of 2) 2015 COVID-19 Vaccine (2023-2 5 season) 2024 Meningococcal B Vaccine Aged Out No l onger eligible based on patient's age to complete this topic Meningococcal Vaccine Aged Out No leslee sukhdeep eligible based on patient's age to complete this topic RSV Immunizations Under 20 Months Aged Out No longer eligible based on patient's age to complete this topic
[2025-01-18] MEDS: HYDROcodone/acetaminophen (*CRX) 5-325 MG TABLET 1 TAB PO (12:40)
[2025-01-18] MEDS: KETOROLAC 30 MG/ML VIAL (*BKC) IM (12:41)
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
== END 2025-01-18 14:58 | disposition home or self-care (01) ==
PROVIDERS: Emergency Provider Student in an Organized Health Care Education/Training Program; PCP Physician Assistant
DX: S16.1XXA Strain of muscle, fascia and tendon at neck level, initial encounter (principal); I10 Essential (primary) hypertension; E11.9 Type 2 diabetes mellitus without complications; K58.9 Irritable bowel syndrome, unspecified; F41.8 Other specified anxiety disorders; M47.812 Spondylosis without myelopathy or radiculopathy, cervical region; Z79.85 Long-term (current) use of injectable non-insulin antidiabetic drugs; Z79.899 Other long term (current) drug therapy; V43.52XA Car driver injured in collision with other type car in traffic accident, initial encounter
CPT/HCPCS: 70450; 70486; 72125; 73030; 96372; 99284; A9270; J1885